=== PATIENT | female | born 1995 | race Caucasian/White ===

== ENCOUNTER 2017-12-16 15:49 | Outpatient (CLI) | payer OTHER, MEDICAID, SELFPAY | END 2017-12-16 17:25 | disposition home or self-care (01) | LOC: LABOR 17:27 → OB 12-17 09:23 | PROVIDERS: PCP Obstetrics & Gynecology | DX: O30.002 Twin pregnancy, unspecified number of placenta and unspecified number of amniotic sacs, second trimester (principal); Z3A.23 23 weeks gestation of pregnancy | CPT/HCPCS: 59050; G0378; G0379 ==

== ENCOUNTER 2018-02-06 12:25 | Emergency (ER) | payer OTHER, MEDICAID, SELFPAY ==
[2018-02-06 12:28] VITALS: BP 137/86; PULSE 120; RESP 18; TEMP 36.3; O2SAT 98
[2018-02-06 13:15] LABS: Influenza A and B by PCR Rapid Negative (Negative)
--- NOTE | 2018-02-06 13:20 | ED_ITS ---
HPI - URI/Sore Throat General Chief Complaint: Upper Respiratory Symptoms Stated Complaint: 'A COLD',32 WEEKS WITH TWINS Time Seen by Provider: 02/06/18 13:12 Source: patient Mode of arrival: ambulatory Limitations: no limitations History of Present Illness HPI Narrative: This is a 22-year-old female who comes to the emergency department with complaint of upper respiratory congestion, productive cough with green sputum, posttussive emesis while 32 weeks with twins. Patient is not aware of any fevers she has had for sure. She states that she has felt like it is difficult to breathe but more in her upper respiratory area. She is denying any current chest pain or pressure. She has had some nausea immediately with her after cough as well as independently. She has had diarrhea about 2 times daily. Her symptoms all started about 3 days ago. Patient has had a little bit of stress incontinence every time she coughs she has a little bit a urine but she has been having stress incontinence the further her progresses. Her OBGYN is in every. She has not had any complications so far with her . She is taking an aspirin daily to prevent placental abruption. She is on a and no other regular medications. She denies any other past medical history. Related Data Previous Rx's Medication Instructions Recorded omeprazole 20 mg PO DAILY #30 cap 12/16/17 amoxicillin 500 mg PO TID 5 Days #15 cap 02/06/18 Allergies Allergy/AdvReac Type Severity Reaction Status Date / Time No Known Drug Allergies Allergy Verified 02/06/18 12:28 Review of Systems Review of Systems All systems reviewed & are unremarkable except as noted in HPI and below Constitutional Denies fever(s) Cardiovascular Denies chest pain Respiratory Reports change in phlegm color, Reports chest congestion, Reports cough, Denies hemoptysis, Reports excessive phlegm production (green) and Denies wheezing Gastrointestinal Gastrointestinal: Denies abdominal pain, Denies change in bowel habits, Reports diarrhea (x2 daily), Reports nausea and Reports vomiting Genitourinary Reports as per HPI (), Reports urinary frequency, Reports urinary incontinence (stress incontinence) and Denies urinary urgency Allergic/Immunologic Denies wheezing PFSH Medical History Twin (Acute) Social History Smoking Status: Former smoker Exam Narrative Exam Narrative: GEN: well nourished, well appearing female, alert and oriented x 3, patient appears to be in mild distress. HEENT: Atraumatic, pupils are equal round reactive to light, extraocular movements are intact, nares clear rhinorrhea bilaterally, TMs are clear with no fluid, there is no conjunctival pallor. Throat is clear without any exudates, erythema, tonsillar enlargement or uvular deviation HEART: Slightly tachycardic but Regular rate and rhythm without murmur, clicks , rubs. LUNGS:Lungs clear to auscultation, no decreased breath sounds, no wheezes, rales , crackles, chest moves symmetrically, no accessory muscle use. Mild edema bilateral lower extremities. ABD:bowel sounds normal, soft, non-tender, no guarding, rebound, rigidity, no masses noted, no hepatosplenomegaly. Gravid. Size appropriate for dates with twins. :No CVA tenderness MSCL: Non-tender, no muscle atrophy, muscles strength 5/5 upper and lower extremities, full range of motion, normal gait NEURO:CN 2-12 intact, sensation normal Initial Vital Signs Initial Vital Signs: Vital Signs Temperature 97.4 F L 02/06/18 12:28 Pulse Rate 120 H 02/06/18 12:28 Respiratory Rate 18 02/06/18 12:28 Blood Pressure 137/86 02/06/18 12:28 Pulse Oximetry 98 02/06/18 12:28 Course Orders Ordered: ED Orders 02/06/18 12:35 FLU A and B [Influenza A and B by PCR Rapid] Stat 02/06/18 14:05 Complete Blood Count AUTO DIFF Stat Comprehensive Metabolic Panel Stat Discontinued Medications Sodium Chloride (Normal Saline 0.9%) 1,000 mls @ 1,000 mls/hr IV BOLUS ONE Stop: 02/06/18 14:18 Last Infusion: 02/06/18 15:24 Dose: 0 mls/hr Admin: 02/06/18 14:19 Dose: 1,000 mls/hr Ondansetron HCl (Zofran) 4 mg IV NOW ONE Stop: 02/06/18 13:20 Last Admin: 02/06/18 14:19 Dose: 4 mg Vital Signs - 8 hr 02/06/18 12:28 02/06/18 15:09 02/06/18 16:03 Temperature 97.4 F L 97.3 F L Pulse Rate 120 H 106 H 108 H Respiratory Rate 18 18 18 Blood Pressure 137/86 118/69 Blood Pressure [Right Arm] 106/66 Pulse Oximetry 98 99 99 MDM - URI/Sore Throat Differential Diagnosis Differential diagnosis: Likely upper respiratory infection, bronchitis, influenza and other (pneumonia vs. other) Lab Data Result diagrams: 02/06/18 14:05 02/06/18 14:05 Lab Results 02/06/18 02/06/18 02/06/18 Range/Units 12:35 14:05 14:05 WBC 19.2 H (4.5-11.0) X10^3/uL RBC 3.39 L (4.0-5.2) X10^6/uL Hgb 9.3 L (12.0-16.0) g/dL Hct 27.2 L (36-46) % MCV 80.3 (80-100) fL MCH 27.5 (26-34) PG MCHC 34.3 (30-36) % RDW 14.1 (11.6-14.8) % Plt Count 317 (150-400) X10^3/uL Neut % (Auto) 87.2 H (50-75) % Lymph % (Auto) 6.9 L (25-40) % [place] % (Auto) 5.1 (3-14) % Eos % (Auto) 0.3 L (2-4) % Baso % (Auto) 0.5 (0-2) % Neut # (Auto) 54893 H (6180-3330) /uL Sodium 138 (137-145) mmol/L Potassium 4.1 (3.4-5.1) mmol/L Chloride 106 (98-107) mmol/L Carbon Dioxide 20 L (22-32) mmol/L BUN 3 L (7-17) mg/dL Creatinine 0.40 L (0.52-1.04) mg/dL Estimated GFR > 60.0 (>60) mL/min BUN/Creatinine Ratio 7.5 (6-22) Glucose 86 (70-100) mg/dL Calcium 9.1 (8.4-10.2) mg/dL Total Bilirubin 0.2 (0.2-1.3) mg/dL AST 14 (14-36) IU/L ALT 13 (9-52) IU/L Alkaline Phosphatase 116 (38-126) U/L Total Protein 6.5 (6.3-8.2) g/dL Albumin 3.7 (3.5-5.0) g/dL Globulin 2.8 (1.7-4.1) g/dL Albumin/Globulin Ratio 1.3 (1.0-2.8) Influenza A & B (PCR) Negative (Negative) Urine Dip Bedside Urine Glucose Negative Bedside Urine Bilirubin - Negative Bedside Urine Ketone +/- 5 Urine Specific [place] 1.015 Bedside Urine Occult Blood - Negative Bedside Urine pH 7.0 Bedside Urine Protein - Negative Bedside Urine Urobilinogen - Negative Bedside Urine Nitrite - Negative Bedside Urine Leukocytes - Negative Esterase MDM Narrative Medical decision making narrative: Patient comes in tachycardic, patient has been having emesis has not been feeling well. Patient given a L of fluids and some Zofran this made her feel a little bit better rate improved but she still is great. She is 32 weeks with twins she states she has plenty of good movement. Patient has had upper respiratory infection with positive sick contact in the last couple weeks. She has had some green productive sputum so somewhat suspicions for pneumonia. We discussed chest x-ray but deferred, her physical exam was clear with no crackles, wheezes rales or rhonchi. She has not had any hypoxia her blood pressure has been appropriate. Her white count is elevated some of this may be related to but may also be struck directly from infection. She is anemic which may also be contributing to her shortness of breath. Renal function is normal the rest of her labs are normal. She has not having any swelling her lower extremities or changes on her lung exam that make me suspicious for cardiomyopathy. Patient does have congestion consistent with upper respiratory infection. Discussed signs and symptoms to watch for, she has follow-up on February 13 with her OBGYN but encouraged to follow up sooner or return for recheck. Discharge Plan Departure Patient Disposition: Home Clinical Impression: Pneumonia Discharge Date/Time: 02/06/18 16:03 Interventions: ED Discharge Assessment Last Done: 02/06/18 16:03 Instructions: DI for Pneumonia -- Adult Activity Restrictions/Additional Instructions: Follow up with your ton container filler at your scheduled appointment on February 13, call to see if they would like to see you sooner. Take antibiotics until completely gone for presumptive pneumonia. You may take tylenol up to 1000mg every 8 hours as needed for pain. Make sure your drinking plenty of fluids. Return to the emergency department for fevers greater than 100.4, worsening shortness of breath, increasing or new chest pain, passing out abdominal pain, suddenly for worsening swelling of lower extremities or other new or concerning symptoms. Prescriptions: New amoxicillin 500 mg capsule 500 mg PO TID 5 Days Qty: 15 RF: 0 No Action omeprazole 20 mg capsule,delayed release(DR/EC) 20 mg PO DAILY Qty: 30 RF: 3 Referrals: Lima Johnson DO [Primary Care Provider] -
[2018-02-06 14:17] LABS: Add Manual Diff / Slide Review NO; Basophils Percent Auto 0.5 % (0-2); Eosinophils Percent Auto 0.3 % (2-4); Hematocrit 27.2 % (36-46); Hemoglobin 9.3 g/dL (12.0-16.0); Lymphocytes Percent Auto 6.9 % (25-40); Mean Corpuscular HGB Conc 34.3 % (30-36); Mean Corpuscular Hemoglobin 27.5 PG (26-34); Mean Corpuscular Volume 80.3 fL (80-100); Monocytes Percent Auto 5.1 % (3-14); Neutrophils Absolute Auto 16700 /uL (1500-7000); Neutrophils Percent Auto 87.2 % (50-75); Platelet Count 317 X10^3/uL (150-400); Red Blood Cell Count 3.39 X10^6/uL (4.0-5.2); Red Cell Distribution Width 14.1 % (11.6-14.8); White Blood Cell Count 19.2 X10^3/uL (4.5-11.0)
[2018-02-06] MEDS: ONDANSETRON 4 MG/2 ML INJ IV (14:19)
[2018-02-06] MEDS: SODIUM CHLORIDE 0.9% 1,000 ML 1000 ML IV (14:19)
[2018-02-06 14:29] LABS: Alanine Aminotransferase 13 IU/L (9-52); Albumin 3.7 g/dL (3.5-5.0); Albumin Globulin Ratio 1.3 (1.0-2.8); Alkaline Phosphatase 116 U/L (38-126); Aspartate Aminotransferase 14 IU/L (14-36); BUN Creatinine Ratio 7.5 (6-22); Bilirubin Total 0.2 mg/dL (0.2-1.3); Blood Urea Nitrogen 3 mg/dL (7-17); Calcium 9.1 mg/dL (8.4-10.2); Carbon Dioxide 20 mmol/L (22-32); Chloride 106 mmol/L (98-107); Estimated Glomerular Filt Rate > 60.0 mL/min (>60); Globulin 2.8 g/dL (1.7-4.1); Glucose 86 mg/dL (70-100); HEMOLYSIS < 15 (0-50); Potassium 4.1 mmol/L (3.4-5.1); Sodium 138 mmol/L (137-145); Total Protein 6.5 g/dL (6.3-8.2)
[2018-02-06 15:09] VITALS: BP 106/66; PULSE 106; RESP 18; TEMP 36.3; O2SAT 99
[2018-02-06 16:03] VITALS: BP 118/69; PULSE 108; RESP 18; O2SAT 99
== END 2018-02-06 16:03 | disposition home or self-care (01) ==
PROVIDERS: Emergency Provider Emergency Medicine; PCP Obstetrics & Gynecology
DX: J18.9 Pneumonia, unspecified organism (principal)
CPT/HCPCS: 36591; 80053; 81003; 85025; 87400; 96361; 96374; 99283; 99284; J2405

== ENCOUNTER 2018-02-14 21:07 | Inpatient (IN) | payer OTHER, MEDICAID, SELFPAY ==
[2018-02-14] MEDS: NIFEdipine 10 MG CAPSULE PO ×4 (21:59→23:02)
[2018-02-14 22:19] LABS: Bacteria Urine None Seen; RBC Urine None Seen (0-5/HPF); WBC Urine None Seen (0-5/HPF)
[2018-02-14 22:21] LABS: Appearance Urine UA CLEAR; Bilirubin Urine UA NEGATIVE (NEGATIVE); Color Urine UA YELLOW; Glucose Urine UA NEGATIVE (Negative); Ketones Urine UA NEGATIVE (NEGATIVE); Leukocyte Esterase Urine UA NEGATIVE (NEGATIVE); Nitrite Urine UA NEGATIVE (Negative); Occult Blood Urine UA NEGATIVE (Negative); Protein Urine UA NEGATIVE (Negative); Specific Gravity Urine UA <=1.005 (1.000-1.035); Urobilinogen Urine UA 0.2 E.U./dL (0.2)
[2018-02-14 22:34] LABS: Culture Indicated Urine Cult Not Indicated; Squamous Epithelial Cell Urine 0-1 /HPF
[2018-02-14] MEDS: LACTATED RINGERS 1,000 ML 100 ML IV (23:35)
[2018-02-14] MEDS: MAGNESIUM SULFATE 4 GM/100 ML PIGGYBACK IV (23:50)
--- NOTE | 2018-02-14 23:56 | P.HPOB_ITS ---
OB HPI Date/Time Date of admission: 02/14/18 Date Patient Seen: 02/14/18 Time Patient Seen: 23:50 History of Present Condition Chief complaint: : 1 Para: 0 Estimated Date of Delivery: 03/06/18 Estimated Gestational Age (weeks): 32 Narrative: Katiana Chery is a 22 year old female with premature labor with twin gestation History of Present care: initiated at week # (16) Dating criteria: LMP confirmed by 2nd trimester US Ultrasounds: abnormal US findings (Short humerus short femur and echogenic intracardiac foci of fetus 1) Obstetrical complications: none Medical complications: respiratory (02/06/2019 given amoxicillin 500 mg t.i.d. for 5 days for possible pneumonia) Narrative: Preadmission Labs Blood type: A (+) positive Evaluation Evaluation Baseline heart rate: 130 (both) Variability: Moderate (11-25) (both) monitor accelerations: Present (both) monitor decelerations: Absent (both) Contraction Frequency (minutes): 5 Uterine Contraction Intensity: Moderate Category of Tracing: I Cervical dilation (cm): 1 Cervical effacement (%): 80 Laboratory results: Laboratory Tests 02/14/18 22:05 Urine Color Yellow Urine Appearance Clear Urine pH 7.0 Ur Specific [place] <=1.005 Urine Protein Negative Urine Glucose (UA) Negative Urine Ketones Negative Urine Occult Blood Negative Urine Nitrate Negative Urine Bilirubin Negative Urine Urobilinogen 0.2 Ur Leukocyte Esterase Negative Urine RBC None seen Urine WBC None seen Ur Squamous Epith Cells 0-1 /hpf Urine Bacteria None seen Ur Culture Indicated? Cult not indicated Micro UA Comment Not Reportable PFSH Medical History Twin (Acute) Social History Smoking Status: Former smoker Meds Home Medications Medication Instructions Recorded Confirmed Type [id number] fumarate-FA 1 tab PO DAILY 02/14/18 02/14/18 History [] aspirin [Aspir-81] 81 mg PO DAILY 02/14/18 02/14/18 History Allergies Allergy/AdvReac Type Severity Reaction Status Date / Time No Known Drug Allergies Allergy Verified 02/14/18 22:14 Review of Systems Review of Systems Patient has a mild cough but no further shortness of breath. No headaches or scotomata. No vaginal bleeding or leakage of fluid. Good movement. All systems reviewed & are unremarkable except as noted in HPI and below Exam Vital Signs (past 8 hours): Blood pressure 135/61, pulse 98, temperature 98.2 Narrative Exam Narrative: HEENT exam within normal limits. Lungs are clear to auscultation and percussion although occasional coarse rhonchi that clear with cough. Heart is regular rate and rhythm no S3-S4 or murmurs. Abdomen is soft with no tenderness. Patient is having moderate palpation contractions. Cervical exam was fingertip 80%. Extremities without edema and nontender. Ultrasound twin A vertex, twin B transverse head in the right upper quadrant. Normal fluid. Objective Labs Labs: Laboratory Results - last 24 hr 02/14/18 22:05 Urine Color Yellow Urine Appearance Clear Urine pH 7.0 Ur Specific [place] <=1.005 Urine Protein Negative Urine Glucose (UA) Negative Urine Ketones Negative Urine Occult Blood Negative Urine Nitrate Negative Urine Bilirubin Negative Urine Urobilinogen 0.2 Ur Leukocyte Esterase Negative Urine RBC None seen Urine WBC None seen Ur Squamous Epith Cells 0-1 /hpf Urine Bacteria None seen Ur Culture Indicated? Cult not indicated Micro UA Comment Not Reportable Assessment and Plan (1) Twin gestation in third trimester: Current visit: Yes Status: Acute (2) Premature labor: Current visit: Yes Status: Acute Plan: Plan: 32 and 6/7 weeks by dates twin gestation with premature labor unresponsive to IV fluids and nifedipine. Urine is negative. Will transfer her to [facility] accepting. IV magnesium sulfate 4 g bolus then 2 grams/ hour and 12 mg of betamethasone IM given to the patient.
[2018-02-15] MEDS: MAGNESIUM SULFATE 20 GM/500 ML IV.SOLN IV (00:15)
[2018-02-15] MEDS: BETAMETHASONE 30 MG/5 ML MDV 12 MG IM (00:23)
== END 2018-02-15 02:25 | disposition short-term general hospital (02) | DRG 563 ==
PROVIDERS: Admitting Provider Specialist; PCP Obstetrics & Gynecology; Visit Provider Specialist
DX: O60.03 Preterm labor without delivery, third trimester (principal); O30.003 Twin pregnancy, unspecified number of placenta and unspecified number of amniotic sacs, third trimester; Z3A.32 32 weeks gestation of pregnancy
CPT/HCPCS: 59025; 59050; 76815; 81001; 96372; 99235; G0378; G0379; J0702; J3475

== ENCOUNTER 2018-05-07 14:31 | Emergency (ER) | payer OTHER, MEDICAID, SELFPAY ==
[2018-05-07 14:47] VITALS: BP 143/85; PULSE 92; RESP 20; TEMP 36.6; O2SAT 98; BMI 31.6
--- NOTE | 2018-05-07 14:48 | ED.ABDPAIN ---
HPI - Abdominal Pain <JANA Mahmood - Last Filed: 05/07/18 22:24> General Chief Complaint: Abdominal Pain Stated Complaint: umbilical hernia Time Seen by Provider: 05/07/18 14:32 Source: patient Mode of arrival: ambulatory Limitations: no limitations History of Present Illness HPI narrative: 22-year-old healthy female that is an everyday smoker here for complaint of having umbilical hernia. She reports she has had an umbilical hernia for the past 6 weeks after given to her twins. She was seen by her doctor today for this and was referred to surgery for further evaluation and treatment. She presents today due to the pain of the umbilical hernia. She states that she is now changing from breast-feeding to formula as she states that it is getting difficult for her to breast feed due to the discomfort. She denies any recent trauma to the abdomen. She states that the hernia reduces and returns periodically. She reports that her pain is exacerbated by carrying the twins. She denies any other concerns or complaints at this time. She denies any urinary symptoms. Last bowel movement was last night and was unremarkable. MD complaint: abdominal pain Related Data Home Medications Medication Instructions Recorded Confirmed [id number] fumarate-FA 1 tab PO DAILY 02/14/18 02/14/18 [] aspirin [Aspir-81] 81 mg PO DAILY 02/14/18 02/14/18 Previous Rx's Medication Instructions Recorded hydrocodone-acetaminophen 1 tab PO Q4-6H PRN #15 tab 05/07/18 Allergies Allergy/AdvReac Type Severity Reaction Status Date / Time No Known Drug Allergies Allergy Verified 02/14/18 22:14 Review of Systems <JANA Mahmood - Last Filed: 05/07/18 22:24> Constitutional Denies chills, Denies fever(s), Denies lethargy and Denies weakness Eyes Denies change in vision, Denies eye discharge, Denies irritation and Denies loss of vision ENT Ears, Nose, Mouth, and Throat: Denies change in voice, Denies neck pain and Denies sore throat Cardiovascular Denies chest pain, Denies irregular heart rhythm, Denies lightheadedness, Denies palpitations, Denies dyspnea, Denies dyspnea on exertion and Denies orthopnea Respiratory Denies cough, Denies dyspnea, Denies dyspnea on exertion and Denies wheezing Gastrointestinal Gastrointestinal: Denies abdominal pain, Denies change in bowel habits, Denies diarrhea, Denies nausea and Denies vomiting Comments: Umbilical hernia Genitourinary Denies hematuria, Denies flank pain, Denies urinary incontinence and Denies urinary urgency Musculoskeletal Denies neck pain Integumentary/Breasts Denies pruritus, Denies erythema, Denies rash and Denies wounds Neurologic Denies loss of vision and Denies weakness Endocrine Denies palpitations Allergic/Immunologic Denies wheezing PFSH <JANA Mahmood - Last Filed: 05/07/18 22:24> Medical History Twin (Acute) Social History Smoking Status: Former smoker Social History Smoking Status: Former smoker Exam <JANA Mahmood - Last Filed: 05/07/18 22:24> Initial Vital Signs Initial Vital Signs: Vital Signs Temperature 97.8 F 05/07/18 14:47 Pulse Rate 92 H 05/07/18 14:47 Respiratory Rate 20 05/07/18 14:47 Blood Pressure 143/85 H 05/07/18 14:47 Pulse Oximetry 98 05/07/18 14:47 Const General: cooperative and well developed Nutritional Appearance: well nourished Orientation: alert, awake, oriented x3 and not confused HENMT Mouth: oral mucosae normal and moist mucous membranes Eyes Conjunctivae: conjunctivae normal Sclera: sclerae normal Pupils: PERRL EOM: EOM intact bilaterally Resp Effort & Inspection: normal respiratory effort, able to speak in complete sentences, no respiratory distress and no use of accessory muscles Auscultation: clear to auscultation bilaterally, no rales, no rhonchi and no wheezes Cardio Rate: regular rate Rhythm: regular rhythm Heart Sounds: no click, no gallops, no murmurs and no rubs Pulses: normal peripheral pulses GI Inspection: non-distended Palpation: soft, no hepatosplenomegaly, No guarding, No pulsatile mass and tender Auscultation: normal bowel sounds Other: Tenderness on palpation to the umbilical area. 2 cm umbilical hernia is appreciated. It is reducible. Do not appreciate strangulation at this time. Skin General: no rashes or lesions noted, No jaundice and No petechiae Neuro General: alert, oriented x3, gait normal and no focal motor deficits Speech: speech normal <Elvia Bo DO - Last Filed: 05/08/18 09:52> Initial Vital Signs Initial Vital Signs: Vital Signs Temperature 97.8 F 05/07/18 14:47 Pulse Rate 92 H 05/07/18 14:47 Respiratory Rate 20 05/07/18 14:47 Blood Pressure 143/85 H 05/07/18 14:47 Pulse Oximetry 98 05/07/18 14:47 Course <JANA Mahmood - Last Filed: 05/07/18 22:24> Orders Ordered: Discontinued Medications Hydrocodone Bitart/Acetaminophen ([place] 5/325) 1 tab PO NOW ONE Stop: 05/07/18 14:57 Last Admin: 05/07/18 15:10 Dose: 1 tab Vital Signs - 8 hr 05/07/18 14:47 Temperature 97.8 F Pulse Rate 92 H Respiratory Rate 20 Blood Pressure 143/85 H Pulse Oximetry 98 <Elvia Bo DO - Last Filed: 05/08/18 09:52> Orders Ordered: Discontinued Medications Hydrocodone Bitart/Acetaminophen ([place] 5/325) 1 tab PO NOW ONE Stop: 05/07/18 14:57 Last Admin: 05/07/18 15:10 Dose: 1 tab Vital Signs - 8 hr 05/07/18 14:47 Temperature 97.8 F Pulse Rate 92 H Respiratory Rate 20 Blood Pressure 143/85 H Pulse Oximetry 98 MDM - Abdominal Pain <JANA Mahmood - Last Filed: 05/07/18 22:24> MDM Narrative Medical decision making narrative: Signs and symptoms presents as a reducible umbilical hernia. She is already for to surgery for outpatient treatment of this. The hernia is reduced due supple. No strangulation is appreciated. Will have her follow up with surgery as directed. [id number] Tylenol or Motrin as needed for any discomfort. She is prescribed [place] for breakthrough pain. Follow up with primary care provider. Return emergency room for any worsening symptoms. Discharge Plan Departure Patient Disposition: Home Clinical Impression: Hernia, umbilical Qualifiers: Obstruction and gangrene presence: without obstruction or gangrene Qualified Code(s): K42.9 - Umbilical hernia without obstruction or gangrene Discharge Date/Time: 05/07/18 15:16 Interventions: ED Discharge Assessment Last Done: 05/07/18 15:15 Instructions: DI for Ventral Hernia Activity Restrictions/Additional Instructions: Signs and symptoms presents as an umbilical hernia. Follow up with surgery as directed for further treatment and evaluation. Hernia is reducible and therefore is not medical emergency at this timeframe. Use [id number] Tylenol or Motrin as needed for any discomfort. [place] is prescribed for breakthrough pain use as directed. No driving while on the [place]. For any worsening symptoms return emergency room. Follow up with primary care provider. Prescriptions: New hydrocodone-acetaminophen 5-325 mg tablet 1 tab PO Q4-6H PRN (Reason: pain) Qty: 15 RF: 0 No Action aspirin [Aspir-81] 81 mg Tablet,Delayed Release (Dr/Ec) 81 mg PO DAILY RF: 0 [id number] fumarate-FA [] 28-800 mg-mcg Tablet 1 tab PO DAILY RF: 0 Referrals: Lima Johnson DO [Primary Care Provider] - <Elvia Bo DO - Last Filed: 05/08/18 09:52> Cosign ED Attending Yogiature Attestation: I was immediately available in the department for consultation. Documentation has been reviewed. I agree with assessment and plan.
--- NOTE | 2018-05-07 15:02 | ED_ITS ---
HPI - Abdominal Pain <JANA Mahmood - Last Filed: 05/07/18 22:24> General Chief Complaint: Abdominal Pain Stated Complaint: umbilical hernia Time Seen by Provider: 05/07/18 14:32 Source: patient Mode of arrival: ambulatory Limitations: no limitations History of Present Illness HPI narrative: 22-year-old healthy female that is an everyday smoker here for complaint of having umbilical hernia. She reports she has had an umbilical hernia for the past 6 weeks after given to her twins. She was seen by her doctor today for this and was referred to surgery for further evaluation and treatment. She presents today due to the pain of the umbilical hernia. She states that she is now changing from breast-feeding to formula as she states that it is getting difficult for her to breast feed due to the discomfort. She denies any recent trauma to the abdomen. She states that the hernia reduces and returns periodically. She reports that her pain is exacerbated by carrying the twins. She denies any other concerns or complaints at this time. She denies any urinary symptoms. Last bowel movement was last night and was unremarkable. MD complaint: abdominal pain Related Data Home Medications Medication Instructions Recorded Confirmed [id number] 1 tab PO DAILY 02/14/18 02/14/18 [] aspirin [Aspir-81] 81 mg PO DAILY 02/14/18 02/14/18 Previous Rx's Medication Instructions Recorded hydrocodone-acetaminophen 1 tab PO Q4-6H PRN #15 tab 05/07/18 Allergies Allergy/AdvReac Type Severity Reaction Status Date / Time No Known Drug Allergies Allergy Verified 02/14/18 22:14 Review of Systems <JANA Mahmood - Last Filed: 05/07/18 22:24> Constitutional Denies chills, Denies fever(s), Denies lethargy and Denies weakness Eyes Denies change in vision, Denies eye discharge, Denies irritation and Denies loss of vision ENT Ears, Nose, Mouth, and Throat: Denies change in voice, Denies neck pain and Denies sore throat Cardiovascular Denies chest pain, Denies irregular heart rhythm, Denies lightheadedness, Denies palpitations, Denies dyspnea, Denies dyspnea on exertion and Denies orthopnea Respiratory Denies cough, Denies dyspnea, Denies dyspnea on exertion and Denies wheezing Gastrointestinal Gastrointestinal: Denies abdominal pain, Denies change in bowel habits, Denies diarrhea, Denies nausea and Denies vomiting Comments: Umbilical hernia Genitourinary Denies hematuria, Denies flank pain, Denies urinary incontinence and Denies urinary urgency Musculoskeletal Denies neck pain Integumentary/Breasts Denies pruritus, Denies erythema, Denies rash and Denies wounds Neurologic Denies loss of vision and Denies weakness Endocrine Denies palpitations Allergic/Immunologic Denies wheezing PFSH <JANA Mahmood - Last Filed: 05/07/18 22:24> Medical History Twin (Acute) Social History Smoking Status: Former smoker Social History Smoking Status: Former smoker Exam <JANA Mahmood - Last Filed: 05/07/18 22:24> Initial Vital Signs Initial Vital Signs: Vital Signs Temperature 97.8 F 05/07/18 14:47 Pulse Rate 92 H 05/07/18 14:47 Respiratory Rate 20 05/07/18 14:47 Blood Pressure 143/85 H 05/07/18 14:47 Pulse Oximetry 98 05/07/18 14:47 Const General: cooperative and well developed Nutritional Appearance: well nourished Orientation: alert, awake, oriented x3 and not confused HENMT Mouth: oral mucosae normal and moist mucous membranes Eyes Conjunctivae: conjunctivae normal Sclera: sclerae normal Pupils: PERRL EOM: EOM intact bilaterally Resp Effort & Inspection: normal respiratory effort, able to speak in complete sentences, no respiratory distress and no use of accessory muscles Auscultation: clear to auscultation bilaterally, no rales, no rhonchi and no wheezes Cardio Rate: regular rate Rhythm: regular rhythm Heart Sounds: no click, no gallops, no murmurs and no rubs Pulses: normal peripheral pulses GI Inspection: non-distended Palpation: soft, no hepatosplenomegaly, No guarding, No pulsatile mass and tender Auscultation: normal bowel sounds Other: Tenderness on palpation to the umbilical area. 2 cm umbilical hernia is appreciated. It is reducible. Do not appreciate strangulation at this time. Skin General: no rashes or lesions noted, No jaundice and No petechiae Neuro General: alert, oriented x3, gait normal and no focal motor deficits Speech: speech normal <Elvia Bo DO - Last Filed: 05/08/18 09:52> Initial Vital Signs Initial Vital Signs: Vital Signs Temperature 97.8 F 05/07/18 14:47 Pulse Rate 92 H 05/07/18 14:47 Respiratory Rate 20 05/07/18 14:47 Blood Pressure 143/85 H 05/07/18 14:47 Pulse Oximetry 98 05/07/18 14:47 Course <JANA Mahmood - Last Filed: 05/07/18 22:24> Orders Ordered: Discontinued Medications Hydrocodone Bitart/Acetaminophen ([place] 5/325) 1 tab PO NOW ONE Stop: 05/07/18 14:57 Last Admin: 05/07/18 15:10 Dose: 1 tab Vital Signs - 8 hr 05/07/18 14:47 Temperature 97.8 F Pulse Rate 92 H Respiratory Rate 20 Blood Pressure 143/85 H Pulse Oximetry 98 <Elvia Bo DO - Last Filed: 05/08/18 09:52> Orders Ordered: Discontinued Medications Hydrocodone Bitart/Acetaminophen ([place] 5/325) 1 tab PO NOW ONE Stop: 05/07/18 14:57 Last Admin: 05/07/18 15:10 Dose: 1 tab Vital Signs - 8 hr 05/07/18 14:47 Temperature 97.8 F Pulse Rate 92 H Respiratory Rate 20 Blood Pressure 143/85 H Pulse Oximetry 98 MDM - Abdominal Pain <JANA Mahmood - Last Filed: 05/07/18 22:24> MDM Narrative Medical decision making narrative: Signs and symptoms presents as a reducible umbilical hernia. She is already for to surgery for outpatient treatment of this. The hernia is reduced due supple. No strangulation is appreciated. Will have her follow up with surgery as directed. [id number] Tylenol or Motrin as needed for any discomfort. She is prescribed [place] for breakthrough pain. Follow up with primary care provider. Return emergency room for any worsening symptoms. Discharge Plan Departure Patient Disposition: Home Clinical Impression: Hernia, umbilical Qualifiers: Obstruction and gangrene presence: without obstruction or gangrene Qualified Code(s): K42.9 - Umbilical hernia without obstruction or gangrene Discharge Date/Time: 05/07/18 15:16 Interventions: ED Discharge Assessment Last Done: 05/07/18 15:15 Instructions: DI for Ventral Hernia Activity Restrictions/Additional Instructions: Signs and symptoms presents as an umbilical hernia. Follow up with surgery as directed for further treatment and evaluation. Hernia is reducible and therefore is not medical emergency at this timeframe. Use [id number] Tylenol or Motrin as needed for any discomfort. [place] is prescribed for breakthrough pain use as directed. No driving while on the [place]. For any worsening symptoms return emergency room. Follow up with primary care provider. Prescriptions: New hydrocodone-acetaminophen 5-325 mg tablet 1 tab PO Q4-6H PRN (Reason: pain) Qty: 15 RF: 0 No Action aspirin [Aspir-81] 81 mg Tablet,Delayed Release (Dr/Ec) 81 mg PO DAILY RF: 0 [id number] fumarate-FA [] 28-800 mg-mcg Tablet 1 tab PO DAILY RF: 0 Referrals: Lima Johnson DO [Primary Care Provider] - <Elvia Bo DO - Last Filed: 05/08/18 09:52> Cosign ED Attending Yogiature Attestation: I was immediately available in the department for consultation. Documentation has been reviewed. I agree with assessment and plan.
[2018-05-07] MEDS: HYDROCODONE/ACET 5/325 TABLET 1 TAB PO (15:10)
== END 2018-05-07 15:16 | disposition home or self-care (01) ==
PROVIDERS: Emergency Provider Nurse Practitioner Family; PCP Obstetrics & Gynecology
DX: K42.9 Umbilical hernia without obstruction or gangrene (principal)
CPT/HCPCS: 99282; 99283

== ENCOUNTER 2018-09-08 13:42 | Emergency (ER) | payer OTHER, MEDICAID, SELFPAY ==
[2018-09-08 14:15] VITALS: BP 114/59; PULSE 77; RESP 16; TEMP 36.6; O2SAT 97
--- NOTE | 2018-09-08 14:23 | ED_ITS ---
HPI - Headache General Chief Complaint: Headache Stated Complaint: Left sided migraine for 3 days Time Seen by Provider: 09/08/18 14:10 Source: patient and family Mode of arrival: ambulatory Limitations: no limitations History of Present Illness HPI Narrative: 22-year-old female nonsmoker history of migraines presents with a left-sided headache for the past 3 days. She states it is a 9/10 and aching in nature. She states it is worse with bright lights, loud noises and leaning forward. She states improves with a dark quiet room. She denies any fever or chills. She has had nausea but no vomiting. She denies any injury. She is breast-feeding to 6-month-old twins. She denies any neurologic symptoms such as numbness, tingling or weakness MD Complaint: headache and migraine Location: left and frontal Severity: moderate Quality: aching and throbbing Relieving factors: dark room Exacerbating factors: light and noise Associated symptoms: nausea Treatments prior to arrival: none Related Data Home Medications Medication Instructions Recorded Confirmed acetaminophen [Tylenol] 650 mg PO Q4H PRN 09/08/18 09/08/18 ibuprofen 600 mg PO QID 09/08/18 09/08/18 sertraline 100 mg PO DAILY 09/08/18 09/08/18 Allergies Allergy/AdvReac Type Severity Reaction Status Date / Time No Known Drug Allergies Allergy Verified 09/08/18 14:18 Review of Systems Constitutional Denies chills, Denies fever(s), Reports headache(s), Denies lethargy and Denies weakness Eyes Denies change in vision, Denies eye discharge, Denies irritation and Denies loss of vision ENT Ears, Nose, Mouth, and Throat: Denies change in voice, Reports headache(s), Denies neck pain and Denies sore throat Cardiovascular Denies chest pain, Denies irregular heart rhythm, Denies lightheadedness, Denies palpitations, Denies dyspnea, Denies dyspnea on exertion and Denies orthopnea Respiratory Denies cough, Denies dyspnea, Denies dyspnea on exertion and Denies wheezing Gastrointestinal Gastrointestinal: Denies abdominal pain, Denies change in bowel habits, Denies diarrhea, Reports nausea and Denies vomiting Genitourinary Denies hematuria, Denies flank pain, Denies urinary incontinence and Denies urinary urgency Musculoskeletal Denies neck pain Integumentary/Breasts Denies pruritus, Denies erythema, Denies rash and Denies wounds Neurologic Denies confusion, Reports headache(s), Denies loss of vision and Denies weakness Psychiatric Denies anxiety, Denies confusion, Denies depression, Denies homicidal ideation and Denies suicidal ideation Endocrine Denies palpitations Hematologic/Lymphatic Denies easy bruising Allergic/Immunologic Denies wheezing [facility] Medical History Twin (Acute) Social History Smoking Status: Former smoker Social History Smoking Status: Former smoker Exam Narrative Exam Narrative: GENERAL: 22-year-old female appears stated age, obviously uncomfortable, wearing sunglasses HEAD: Atraumatic. Normocephalic. No temporal or scalp tenderness. EYES: Pupils equal round and reactive. Extraocular motions intact. No scleral icterus. No injection or drainage. ENT: Nose without bleeding, purulent drainage or septal hematoma. Throat without erythema, tonsillar hypertrophy or exudate. Uvula midline. Airway patent. NECK: Trachea midline. No JVD or lymphadenopathy. Supple, nontender, no meningeal signs. CARDIOVASCULAR: Regular rate and rhythm without murmurs, gallops, or rubs. RESPIRATORY: Clear to auscultation. Breath sounds equal bilaterally. No wheezes, rales, or rhonchi. GASTROINTESTINAL: Abdomen soft, non-tender, nondistended. No hepato- splenomegaly, or palpable masses. No guarding. EXTREMITIES: No clubbing, cyanosis, or edema. No joint tenderness, effusion, or edema noted. BACK: Nontender without deformity or crepitance. No flank tenderness. NEURO: AOx3. SKIN: No rash or erythema. NIH Stroke Scale 1a. LOC: Patient is alert and keenly responsive (0) 1b. LOC Questions: Patient answers both LOC questions accurately (0) 1c. LOC Commands: Patient performs both tasks correctly (0) 2. Best Gaze: Normal (0) 3. Visual: No visual loss (0) 4. Facial palsy: Normal symmetrical movements (0) 5. Motor arm: No drift (0) 6. Motor leg: No drift (0) 7. Limb ataxia: Absent (0) 8. Sensory: Normal (0) 9. Best language: No aphasia; normal (0) 10. Dysarthria: Normal (0) 11. Extinction and inattention: No abnormality (0) NIHSS: 0 Initial Vital Signs Initial Vital Signs: Vital Signs Temperature 97.9 F 09/08/18 14:15 Pulse Rate 77 09/08/18 14:15 Respiratory Rate 16 09/08/18 14:15 Blood Pressure 114/59 L 09/08/18 14:15 Pulse Oximetry 97 09/08/18 14:15 Course Orders Ordered: Discontinued Medications Sodium Chloride (Normal Saline 0.9%) 1,000 mls @ 1,000 mls/hr IV BOLUS ONE Stop: 09/08/18 15:19 Last Infusion: 09/08/18 15:51 Dose: 0 mls/hr Admin: 09/08/18 14:39 Dose: 1,000 mls/hr Ketorolac Tromethamine (Toradol) 15 mg IV NOW ONE Stop: 09/08/18 14:21 Last Admin: 09/08/18 14:40 Dose: 15 mg Metoclopramide HCl (Reglan) 10 mg IV NOW ONE Stop: 09/08/18 14:21 Last Admin: 09/08/18 14:39 Dose: 10 mg Vital Signs - 8 hr 09/08/18 14:15 Temperature 97.9 F Pulse Rate 77 Respiratory Rate 16 Blood Pressure 114/59 L Pulse Oximetry 97 Discharge Plan Departure Patient Disposition: Home Clinical Impression: Headache Qualifiers: Headache type: other headache syndrome Qualified Code(s): G44.89 - Other headache syndrome Discharge Date/Time: 09/08/18 15:38 Interventions: ED Discharge Assessment Last Done: 09/08/18 15:38 Instructions: DI for Headache Activity Restrictions/Additional Instructions: *You have been diagnosed with [acute headache, likely migraine variant] *What to do: * continue to take medications as previously directed *Follow up with your primary care provider in 2-3 days, call for an appointment. Let them know you were seen in the Emergency Department and that we ask that you be seen in follow up *Return to ER if you should have any new, worsening or concerning symptoms Prescriptions: No Action sertraline 100 mg Tablet 100 mg PO DAILY RF: 0 ibuprofen 600 mg Tablet 600 mg PO QID RF: 0 acetaminophen [Tylenol] 325 mg Capsule 650 mg PO Q4H PRN (Reason: Pain (Scale Score 1-3)) RF: 0 Referrals: Lima Johnson DO [Primary Care Provider] -
[2018-09-08] MEDS: SODIUM CHLORIDE 0.9% 1,000 ML 1000 ML IV (14:39)
[2018-09-08] MEDS: METOCLOPRAMIDE 10 MG/2 ML INJ IV (14:39)
[2018-09-08] MEDS: KETOROLAC 60 MG/2 ML VIAL 15 MG IV (14:40)
--- NOTE | 2018-09-08 14:48 | PC.NURSE ---
pt reports migraines before but never this bad. pt alert oriented and has two babies that she is . Started iv and fluids and gave medications. In room with and 2 babies.
[2018-09-08 15:38] VITALS: BP 104/62; PULSE 56; RESP 18; O2SAT 98
== END 2018-09-08 15:38 | disposition home or self-care (01) ==
PROVIDERS: Emergency Provider Emergency Medicine; PCP Obstetrics & Gynecology
DX: G44.89 Other headache syndrome (principal)
CPT/HCPCS: 96361; 96374; 96375; 99283; 99284; J1885; J2765

== ENCOUNTER 2018-10-28 12:31 | Observation (INO) | payer OTHER, MEDICAID, SELFPAY ==
[2018-10-28] VITALS (13 sets, daily range): BP systolic 103–149; BP diastolic 59–99; PULSE 62–89; RESP 9–18; TEMP 36.5–37.3; O2SAT 93–99; BMI 31.1
[2018-10-28 15:32] LABS: Add Manual Diff / Slide Review NO; Basophils Absolute Auto 100 /uL (0-100); Eosinophils Absolute Auto 200 /uL (0-450); Eosinophils Percent Auto 1.7 % (2-4); Hematocrit 40.1 % (36-46); Hemoglobin 13.7 g/dL (12.0-16.0); Lymphocytes Absolute Auto 2600 /uL (1100-4500); Lymphocytes Percent Auto 23.3 % (25-40); Mean Corpuscular HGB Conc 34.1 % (30-36); Mean Corpuscular Hemoglobin 28.1 PG (26-34); Mean Corpuscular Volume 82.5 fL (80-100); Monocytes Absolute Auto 500 /uL (0-900); Monocytes Percent Auto 4.8 % (3-14); Neutrophils Absolute Auto 7700 /uL (1500-7000); Neutrophils Percent Auto 69.2 % (50-75); Platelet Count 288 X10^3/uL (150-400); Red Blood Cell Count 4.86 X10^6/uL (4.0-5.2); Red Cell Distribution Width 14.2 % (11.6-14.8)
[2018-10-28 15:38] LABS: INR 1.1 (0.9-1.3); Prothrombin Time 12.1 SECONDS (10.1-12.7)
--- NOTE | 2018-10-28 15:40 | ED_ITS ---
HPI - Abdominal Pain General Chief Complaint: Abdominal Pain Stated Complaint: Abd pain Time Seen by Provider: 10/28/18 15:34 Source: patient and family () Mode of arrival: ambulatory Limitations: no limitations History of Present Illness HPI narrative: 22-year-old female comes to the emergency department with complaint of abdominal pain patient states she has a history of umbilical hernia a little bit similar but is more below the umbilicus today. Patient states it is worse. She has not had any fevers but she has had some nausea and vomiting. She states she has been having bowel movements. No black or bloody stools. No issues with urination. She denies any fevers or chills. Patient states she was told she had umbilical hernia before, she was recommended get surgery but had not had time. She has 2 a 7-month-old twins. She had these via vaginal delivery. Patient denies any other major medical issues. Related Data Home Medications Medication Instructions Recorded Confirmed acetaminophen [Tylenol] 650 mg PO Q4H PRN 09/08/18 10/28/18 sertraline 100 mg PO QPM 09/08/18 10/28/18 Allergies Allergy/AdvReac Type Severity Reaction Status Date / Time No Known Drug Allergies Allergy Verified 10/28/18 12:47 Review of Systems Review of Systems ROS Unobtainable: All systems reviewed & are unremarkable except as noted in HPI and below Constitutional Constitutional: Denies chills, Denies fever(s), Denies lethargy and Denies weakness Gastrointestinal Gastrointestinal: Reports abdominal pain, Denies hematochezia, Denies change in bowel habits, Denies constipation, Denies diarrhea, Reports nausea, Reports vomiting and Reports other (hernia) Genitourinary Genitourinary: Denies abnormal menses, Denies hematuria, Denies urinary frequency, Denies dysuria, Denies flank pain, Denies urinary incontinence, Denies urinary hesitancy, Denies urinary urgency and Denies vaginal discharge Neurologic Neurologic: Denies weakness [facility] Medical History Twin (Acute) Social History Smoking Status: Former smoker Social History Smoking Status: Former smoker Exam Narrative Exam Narrative: GENERAL: Alert and oriented x three, moderately obese, well- appearing female in mild distress. HEENT: Head normocephalic, atraumatic, EOMI, pupils reactive, face symmetric, moist mucous membranes NECK: Supple, full range of motion CARDIOVASCULAR: Regular rate and rhythm without murmurs, rubs or gallops. RESPIRATORY: Breath sounds equal bilaterally, no wheezes rales or rhonchi. ABDOMEN: Soft, positive generalized tenderness. I am able to palpate a small umbilical hernia. It is not easily reduced in the room. Normoactive bowel sounds all 4 quadrants. No guarding or rebound, rigidity, no mass : No CVA tenderness EXTREMITIES: Normal range of motion, no clubbing or edema. Neurovascularly intact NEUROLOGICAL: Cranial nerves II through XII grossly intact. Moving all extremities SKIN: Warm, dry, no petechiae, no rashes or lesions. Initial Vital Signs Initial Vital Signs: Vital Signs Temperature 97.7 F 10/28/18 12:47 Pulse Rate 78 10/28/18 12:47 Respiratory Rate 16 10/28/18 12:47 Blood Pressure 110/74 10/28/18 12:47 Pulse Oximetry 97 10/28/18 12:47 Course Orders Ordered: ED Orders 10/28/18 15:20 Complete Blood Count AUTO DIFF Stat Comprehensive Metabolic Panel Stat Lipase Stat Partial Thromboplastin Time Stat Prothrombin Time INR Stat 10/28/18 15:30 Urine Microscopic Stat 10/28/18 15:50 US abdomen limited Stat Sodium Chloride (Normal Saline 0.9%) 1,000 mls @ 75 mls/hr IV CONT KUSHAL Discontinued Medications Ketorolac Tromethamine (Toradol) 30 mg IV NOW ONE Stop: 10/28/18 15:54 Last Admin: 10/28/18 16:02 Dose: 30 mg Documented by: SHAWN Morphine Sulfate (Morphine) 2 mg IV NOW ONE Stop: 10/28/18 17:24 Last Admin: 10/28/18 17:39 Dose: 2 mg Documented by: DANIKA Vital Signs Vital signs: Vital Signs - 8 hr 10/28/18 12:47 10/28/18 13:30 10/28/18 15:00 Temperature 97.7 F Pulse Rate 78 64 67 Respiratory Rate 16 16 16 Blood Pressure 110/74 Blood Pressure [Right Arm] 149/99 H 112/61 Pulse Oximetry 97 95 98 10/28/18 16:53 Temperature Pulse Rate 67 Respiratory Rate 17 Blood Pressure Blood Pressure [Right Arm] 106/59 L Pulse Oximetry 99 MDM - Abdominal Pain Lab Data Attestation: I reviewed the patient's lab results. Result diagrams: 10/28/18 15:20 10/28/18 15:20 Labs: Lab Results 10/28/18 10/28/18 10/28/18 Range/Units 15:20 15:20 15:20 WBC 11.0 (4.5-11.0) X10^3/uL RBC 4.86 (4.0-5.2) X10^6/uL Hgb 13.7 (12.0-16.0) g/dL Hct 40.1 (36-46) % MCV 82.5 (80-100) fL MCH 28.1 (26-34) PG MCHC 34.1 (30-36) % RDW 14.2 (11.6-14.8) % Plt Count 288 (150-400) X10^3/uL Neut % (Auto) 69.2 (50-75) % Lymph % (Auto) 23.3 L (25-40) % [place] % (Auto) 4.8 (3-14) % Eos % (Auto) 1.7 L (2-4) % Baso % (Auto) 1.0 (0-2) % Neut # (Auto) 7700 H (5991-6522) /uL Lymph # (Auto) 2600 (9938-1870) /uL [place] # (Auto) 500 (0-900) /uL Eos # (Auto) 200 (0-450) /uL Baso # (Auto) 100 (0-100) /uL PT 12.1 (10.1-12.7) SECONDS INR 1.1 (0.9-1.3) APTT 36 (26.4-36.2) SECONDS Sodium 141 (137-145) mmol/L Potassium 4.0 (3.4-5.1) mmol/L Chloride 105 (98-107) mmol/L Carbon Dioxide 24 (22-32) mmol/L BUN 15 (7-17) mg/dL Creatinine 0.60 (0.52-1.04) mg/dL Estimated GFR > 60.0 (>60) mL/min BUN/Creatinine Ratio 25.0 H (6-22) Glucose 86 (70-100) mg/dL Calcium 9.4 (8.4-10.2) mg/dL Total Bilirubin 0.6 (0.2-1.3) mg/dL AST 22 (14-36) IU/L ALT 17 (9-52) IU/L Alkaline Phosphatase 119 (38-126) U/L Total Protein 8.0 (6.3-8.2) g/dL Albumin 4.7 (3.5-5.0) g/dL Globulin 3.3 (1.7-4.1) g/dL Albumin/Globulin Ratio 1.4 (1.0-2.8) Lipase 61 (23-300) U/L Urine RBC (0-5/HPF) Urine WBC (0-5/HPF) Ur Squamous Epith Cells (0-5/HPF) Urine Bacteria (None) Ur Culture Indicated? 10/28/18 Range/Units 15:30 WBC (4.5-11.0) X10^3/uL RBC (4.0-5.2) X10^6/uL Hgb (12.0-16.0) g/dL Hct (36-46) % MCV (80-100) fL MCH (26-34) PG MCHC (30-36) % RDW (11.6-14.8) % Plt Count (150-400) X10^3/uL Neut % (Auto) (50-75) % Lymph % (Auto) (25-40) % [place] % (Auto) (3-14) % Eos % (Auto) (2-4) % Baso % (Auto) (0-2) % Neut # (Auto) (1455-1007) /uL Lymph # (Auto) (9649-1394) /uL [place] # (Auto) (0-900) /uL Eos # (Auto) (0-450) /uL Baso # (Auto) (0-100) /uL PT (10.1-12.7) SECONDS INR (0.9-1.3) APTT (26.4-36.2) SECONDS Sodium (137-145) mmol/L Potassium (3.4-5.1) mmol/L Chloride (98-107) mmol/L Carbon Dioxide (22-32) mmol/L BUN (7-17) mg/dL Creatinine (0.52-1.04) mg/dL Estimated GFR (>60) mL/min BUN/Creatinine Ratio (6-22) Glucose (70-100) mg/dL Calcium (8.4-10.2) mg/dL Total Bilirubin (0.2-1.3) mg/dL AST (14-36) IU/L ALT (9-52) IU/L Alkaline Phosphatase (38-126) U/L Total Protein (6.3-8.2) g/dL Albumin (3.5-5.0) g/dL Globulin (1.7-4.1) g/dL Albumin/Globulin Ratio (1.0-2.8) Lipase (23-300) U/L Urine RBC 0-1/hpf (0-5/HPF) Urine WBC 0-1/hpf (0-5/HPF) Ur Squamous Epith Cells 1-5 /hpf (0-5/HPF) Urine Bacteria None seen (None) Ur Culture Indicated? Cult not indicated Point of care testing: Point of Care Testing Test Results Negative Urine Dip Bedside Urine Glucose Negative Bedside Urine Bilirubin + 1 Bedside Urine Ketone - Negative Urine Specific [place] 1.020 Bedside Urine Occult Blood - Negative Bedside Urine pH 5.5 Bedside Urine Protein - Negative Bedside Urine Urobilinogen - Negative Bedside Urine Nitrite - Negative Bedside Urine Leukocytes +/- 15 Esterase Imaging Data US - abdomen: Radiologist's impression: [address] [address] Ultrasound Report Signed Patient: Katiana Chery R#: [id number] : 1995Acct:[id number] Age/Sex: 22 / FDate of Service: 10/28/18 Loc: ED Accession Number: [id number] Procedure: US abdomen limited Ordering Provider: Anh Jacobs D.O. PROCEDURE: US ABDOMEN LIMITED INDICATIONS: HERNIA?, UMBILICAL TECHNIQUE: Real-time focused scanning was performed of the abdomen, with image documentation. COMPARISON: [facility], CT, CT ABD PELVIS W CON, 01/30/2016, 15:25. FINDINGS: Scanning was performed of the area of clinical concern involving the periumbilical region. At this site, there is a hernia seen, which appears to contain fat. No peristalsis is seen. No malignancy seen with Valsalva. IMPRESSION: Apparent fat-containing periumbilical hernia seen. If it would be helpful for clinical management decision making, please consider a dedicated CT of the abdomen and pelvis with IV and oral contrast. Dictated by: Willie Forbes M.D. on 10/28/2018 at 16:49 Approved by: Willie Forbes M.D. on 10/28/2018 at 16:52 [facility] Narrative Medical decision making narrative: Patient seen by Dr. Sumner. Plan for OR for umbilical hernia. Patient has ultrasound that shows possible fat but patient has been having active vomiting today. Dr. Sumner evaluated and after my attempt reduction which was unsuccessful and he attempted at bedside patient and Dr. hernandez he decided plan for surgical repair. Is breast-feeding, she was set up with breastpump and plan for OR this evening. Patient placed in observatoin. Discharge Plan Departure Patient Disposition: Admitted as Observation Clinical Impression: Hernia, umbilical
[2018-10-28 15:41] LABS: PTT Partial Thromboplastin Tim 36 SECONDS (26.4-36.2)
[2018-10-28 15:43] LABS: Alanine Aminotransferase 17 IU/L (9-52); Albumin 4.7 g/dL (3.5-5.0); Albumin Globulin Ratio 1.4 (1.0-2.8); Alkaline Phosphatase 119 U/L (38-126); Aspartate Aminotransferase 22 IU/L (14-36); Bilirubin Total 0.6 mg/dL (0.2-1.3); Blood Urea Nitrogen 15 mg/dL (7-17); Calcium 9.4 mg/dL (8.4-10.2); Carbon Dioxide 24 mmol/L (22-32); Chloride 105 mmol/L (98-107); Estimated Glomerular Filt Rate > 60.0 mL/min (>60); Globulin 3.3 g/dL (1.7-4.1); Glucose 86 mg/dL (70-100); HEMOLYSIS < 15 (0-50); Lipase 61 U/L (23-300); Sodium 141 mmol/L (137-145)
--- NOTE | 2018-10-28 15:50 | DI.US.S_ITS ---
PROCEDURE: US ABDOMEN LIMITED INDICATIONS: HERNIA?, UMBILICAL TECHNIQUE: Real-time focused scanning was performed of the abdomen, with image documentation. COMPARISON: [facility], CT, CT ABD PELVIS W CON, 01/30/2016, 15:25. FINDINGS: Scanning was performed of the area of clinical concern involving the periumbilical region. At this site, there is a hernia seen, which appears to contain fat. No peristalsis is seen. No malignancy seen with Valsalva. IMPRESSION: Apparent fat-containing periumbilical hernia seen. If it would be helpful for clinical management decision making, please consider a dedicated CT of the abdomen and pelvis with IV and oral contrast. Dictated by: Willie Forbes M.D. on 10/28/2018 at 16:49 Approved by: Willie Forbes M.D. on 10/28/2018 at 16:52
[2018-10-28 15:51] LABS: Bacteria Urine None Seen
[2018-10-28 15:58] LABS: WBC Urine 0-1/HPF (0-5/HPF)
[2018-10-28 15:59] LABS: Culture Indicated Urine Cult Not Indicated; RBC Urine 0-1/HPF (0-5/HPF); Squamous Epithelial Cell Urine 1-5 /HPF (0-5/HPF)
[2018-10-28] MEDS: KETOROLAC 60 MG/2 ML VIAL 30 MG IV (16:02)
[2018-10-28] MEDS: MORPHINE 2 MG/ML INJ IV (17:39)
[2018-10-28] MEDS: SODIUM CHLORIDE 0.9% 1,000 ML 75 ML IV (18:41)
--- NOTE | 2018-10-28 19:12 | PM.HP.1 ---
History of Present Illness History of Present Illness Date Patient Seen: 10/28/18 Time Patient Seen: 19:21 Chief complaint: Abd pain Narrative: 22-year-old female with a known umbilical hernia presents to the emergency room with acute onset of umbilical pain. The past 2 days her umbilical hernia has been protruding and she has been unable to reduce it. Her pain became significantly worse today for which she presented to the emergency room and was associated with nausea vomiting. She is passing flatus. No fever chills malaise. Ultrasound demonstrates an umbilical hernia likely fat containing. Attempt was made to reduce the hernia in the emergency room but this was unsuccessful. She has no significant past medical or surgical history. She recently had twins and is breast feeding. Patient History Medical History Twin (Acute) Social History household members: spouse and children Smoking Status: Current every day smoker alcohol intake: never Family & Social History Social History: household members spouse,children Prior Living Arrangements House Safety & Behavioral: Feels Safe in Current Yes Environment Been Physically Hurt or No Threatened By a Person Suicidal Ideation Description None Suicide Plan Description No Plan Tobacco & Substance use: Tobacco type cigarettes Smoking Status Current every day smoker alcohol intake never alcohol intake frequency other Substance Use Type does not use Meds Home Medications and Allergies Home Medications Medication Instructions Recorded Confirmed Type acetaminophen [Tylenol] 650 mg PO Q4H PRN 09/08/18 10/28/18 History sertraline 100 mg PO QPM 09/08/18 10/28/18 History Allergies Allergy/AdvReac Type Severity Reaction Status Date / Time No Known Drug Allergies Allergy Verified 10/28/18 12:47 Review of Systems Review of Systems ROS Unobtainable: All systems reviewed & are unremarkable except as noted in HPI and below Exam Vital Signs (past 8 hours): - 10/28/18 12:47 10/28/18 13:30 10/28/18 15:00 Temperature 97.7 F Pulse Rate 78 64 67 Respiratory Rate 16 16 16 Blood Pressure 110/74 Blood Pressure [Right Arm] 149/99 H 112/61 Pulse Oximetry 97 95 98 10/28/18 16:53 10/28/18 17:49 10/28/18 18:40 Temperature 98.7 F Pulse Rate 67 76 78 Respiratory Rate 17 16 18 Blood Pressure 124/76 Blood Pressure [Right Arm] 106/59 L 110/68 Pulse Oximetry 99 99 98 Oxygen Delivery Method Room Air Narrative Exam Narrative: General-adult female uncomfortable, well nourished HEENT-moist mucous membranes, no scleral icterus Neck-supple with full range of motion, no lymphadenopathy Chest- no labored respirations, clear to auscultation bilaterally Cardiac-regular rate and rhythm Abdomen-tender no peritonitis, irreducible umbilical hernia, no overlaying skin changes Extremities-no edema, warm well perfused Neurological-alert and oriented x 3. No focal deficits Skin-normal temperature and turgor, no rashes or ulcers Objective Labs Result Diagrams: 10/28/18 15:20 10/28/18 15:20 Labs: Laboratory Results - last 24 hr 10/28/18 10/28/18 10/28/18 15:20 15:20 15:20 WBC 11.0 RBC 4.86 Hgb 13.7 Hct 40.1 MCV 82.5 MCH 28.1 MCHC 34.1 RDW 14.2 Plt Count 288 Neut % (Auto) 69.2 Lymph % (Auto) 23.3 L [place] % (Auto) 4.8 Eos % (Auto) 1.7 L Baso % (Auto) 1.0 Neut # (Auto) 7700 H Lymph # (Auto) 2600 [place] # (Auto) 500 Eos # (Auto) 200 Baso # (Auto) 100 PT 12.1 INR 1.1 APTT 36 Sodium 141 Potassium 4.0 Chloride 105 Carbon Dioxide 24 BUN 15 Creatinine 0.60 Estimated GFR > 60.0 BUN/Creatinine Ratio 25.0 H Glucose 86 Calcium 9.4 Total Bilirubin 0.6 AST 22 ALT 17 Alkaline Phosphatase 119 Total Protein 8.0 Albumin 4.7 Globulin 3.3 Albumin/Globulin Ratio 1.4 Lipase 61 Urine RBC Urine WBC Ur Squamous Epith Cells Urine Bacteria Ur Culture Indicated? 10/28/18 15:30 WBC RBC Hgb Hct MCV MCH MCHC RDW Plt Count Neut % (Auto) Lymph % (Auto) [place] % (Auto) Eos % (Auto) Baso % (Auto) Neut # (Auto) Lymph # (Auto) [place] # (Auto) Eos # (Auto) Baso # (Auto) PT INR APTT Sodium Potassium Chloride Carbon Dioxide BUN Creatinine Estimated GFR BUN/Creatinine Ratio Glucose Calcium Total Bilirubin AST ALT Alkaline Phosphatase Total Protein Albumin Globulin Albumin/Globulin Ratio Lipase Urine RBC 0-1/hpf Urine WBC 0-1/hpf Ur Squamous Epith Cells 1-5 /hpf Urine Bacteria None seen Ur Culture Indicated? Cult not indicated Assessment & Plan Assessment and plan (1) Hernia, umbilical: Current visit: Yes Status: Acute Assessment & Plan narrative: 22-year-old female with an acutely incarcerated umbilical hernia. I attempted to reduce the hernia after administration of morphine but was unable to do so. She is afebrile, without peritonitis or leukocytosis. I reviewed her ultrasound which demonstrates an umbilical hernia. I suspect it is likely fat containing but she has significant pain, nausea and emesis and it would be prudent to ensure there is no bowel within the hernia. We discussed the operation and its associated risks including bleeding, infection, reoccurence. Her questions have been answered and she is in agreement with this plan. Quality VTE Deep Vein Thrombosis/Pulmonary Embolism Present on Admission: No
--- NOTE | 2018-10-28 19:34 | PC.NURSE ---
Pt arrived on unit at approx 1850. She rated her pain 6-7/10. She is A and O x 4, having pain for two days, and vomiting today at home. VSS. NKA, can ambulate independently.
[2018-10-28] MEDS: DEXTROSE 5%-LACTATED RINGERS 1,000 ML 84 ML IV (20:48)
--- NOTE | 2018-10-28 20:57 | SUR.HOLD ---
CBG checked, blood sugar low dr hoffmann made aware, D5LR hung for fluids and pt asymptomatic.
[2018-10-28] MEDS: CEFAZOLIN 2 GM/100 ML FROZ.PIGGY IV (22:00)
--- NOTE | 2018-10-28 22:16 | SUR.OPER ---
Supine on padded OR bed, head on pillow, arms secured on padded arm boards at <90 degrees abduction, legs uncrossed, safety belt at thigh, tape over blanket over lower legs.
[2018-10-28] MEDS: BUPIVACAINE 0.25% (PF) VIAL 30 ML INJ (22:23)
--- NOTE | 2018-10-28 23:08 | PM.OP.1 ---
Operative Date/Time/Diagnoses Date of procedure: 10/28/18 Time of procedure: 23:08 Pre-op diagnosis: Incarcerated umbilical hernia Post-op diagnosis: same Procedure & Clinicians Procedure: Open umbilical hernia repair with mesh Same procedure as scheduled: Yes Indications: 22-year-old female presents with a incarcerated umbilical hernia for the past 24 hours no peritonitis or fever. Ultrasound demonstrated likely fat containing hernia however was significantly painful and associated with nausea and vomiting was therefore taken to the operating room for an open umbilical hernia repair with mesh. Surgeon: Mannie Sumner Click Yes if Unassisted: Yes Anesthesia Type: General Operative Notes Findings: Incarcerated umbilical hernia containing omentum Estimated Blood Loss (mL): 5 Procedure in detail: The patient was brought to the operating room placed supine on the table. Bilateral lower extremity compression devices were applied. She received 2 g of Ancef prior to skin incision. General anesthesia was induced and she was intubated with an endotracheal tube. She was prepped and draped in sterile fashion. Time-out was performed to ensure the correct patient procedure necessary equipment within the operating room. The skin was infiltrated with 0.25% bupivacaine. A infraumbilical curvilinear incision was made through the skin and subcutaneous tissues. The umbilical hernia sac was identified and freed from its fascial attachments circumferentially. The hernia sac was inspected and contained omentum. The hernia sac was reduced into the abdomen. A medium-size c-qur V-PATCH was placed into the abdomen through the fascial defect. The patch was secured to the fascia in an interrupted fashion circumferentially with 0 Prolene suture. The fascia was reapproximated over the mesh with 0 Prolene suture in interrupted [id number] fashion. Hemostasis was achieved. The wound was irrigated with sterile saline. Subcutaneous tissues were reapproximated using 3 0 Vicryl skin closed with 4 0 Monocryl followed by Dermabond. Sponge instrument count at the end of the operation was correct. The patient tolerated procedure well was extubated and transferred to postoperative care unit in stable condition Complications: none Post-operative Condition: stable Disposition: observation
--- NOTE | 2018-10-28 23:21 | SUR.PHASEI ---
Pt arrived to [facility], c/o pain, dr hoffmann medicated pt for pain. pt more comfortable after. Dr. Sumner spoke with pt . Report called to Acute care.
--- NOTE | 2018-10-28 23:30 | SUR.PHASEI ---
Report called to terence West transported up to room 229 and left in stable condition.
[2018-10-28] MEDS: ONDANSETRON 4 MG/2 ML INJ IV (23:36)
--- NOTE | 2018-10-28 23:36 | SUR.PHASEI ---
Pt nauseated, medicated with ondansetron
--- NOTE | 2018-10-28 23:38 | SUR.PHASEI ---
Queaze ease to bedside.
[2018-10-29] VITALS (7 sets, daily range): BP systolic 94–114; BP diastolic 50–69; PULSE 55–78; RESP 10–18; TEMP 36.4–36.9; O2SAT 99–100
--- NOTE | 2018-10-29 00:04 | SUR.PHASEI ---
nausea resoleved, pt transported up to room
--- NOTE | 2018-10-29 00:05 | SUR.PHASEI ---
AQbdomen remains intact.
[2018-10-29] MEDS: MORPHINE 2 MG/ML INJ IV ×3 (00:20→10:11)
[2018-10-29] MEDS: SODIUM CHLORIDE 0.9% 1,000 ML 75 ML IV (00:24)
[2018-10-29] MEDS: KETOROLAC 30 MG/ML VIAL IV (05:43)
[2018-10-29] MEDS: ACETAMINOPHEN 325 MG TABLET 650 MG PO (05:43)
--- NOTE | 2018-10-29 11:08 | PC.NURSE ---
Addendum entered by Christina Archuleta R.N. 10/29/18 12:13: DC - pt sister arrived with her twins, pt states morphine provided adequate relief and plans to breastfeed prior to discharge, instructions reviewed, paperwork provided, when ready, belongings gathered, including clothing and cell phones and chargers, tsf to and escorted to family car. Original Note: AM NOTE - pt is resting comfortably in bed, discussed pain mgt, and states incisional discomfort 6 on scale 0/10, abd is soft, + bt, denies nausea and estela diet, given 2mg iv morphine and pt will take tylenol and ibuprofen at home, hr reg 56. ra 100%.
--- NOTE | 2018-10-29 11:47 | PM.DS.1 ---
History of Present Illness History of Present Illness Chief complaint: Abd pain Narrative: 22-year-old female with a known umbilical hernia presents to the emergency room with acute onset of umbilical pain. The past 2 days her umbilical hernia has been protruding and she has been unable to reduce it. Her pain became significantly worse today for which she presented to the emergency room and was associated with nausea vomiting. She is passing flatus. No fever chills malaise. Ultrasound demonstrates an umbilical hernia likely fat containing. Attempt was made to reduce the hernia in the emergency room but this was unsuccessful. She has no significant past medical or surgical history. She recently had twins and is breast feeding. Discharge Providers Provider Date of admission: 10/28/18 18:07 Discharge Date: 10/29/18 Discharge provider: Mannie Sumner MD Summary Hospital Course Discharge Diagnosis: Incarcerated umbilical hernia Hospital Course: Patient underwent a open umbilical hernia repair with mesh 10/28 for or an incarcerated umbilical hernia. The was omentum within the hernia postoperatively she did well without issue. Pain is controlled she is tolerating a diet ambulatory and ready for discharge. Status at Discharge Cognitive/behavioral status at discharge: oriented Functional status at discharge: independent ambulation Overall status at discharge: patient is back to baseline Time Spent with Patient Time spent: Less than 30 minutes Exam Vital Signs (past 8 hours): - 10/29/18 08:00 Temperature 97.7 F Pulse Rate 58 L Respiratory Rate 16 Blood Pressure 114/64 Pulse Oximetry 100 Oxygen Delivery Method Room Air Oxygen Flow Rate 0 Narrative Exam Narrative: Adult female were oriented no acute distress Abdomen soft nontender nondistended. Umbilical incision clean dry intact. Appropriately tender to palpation. No recurrence of hernia. Objective Labs Result Diagrams: 10/28/18 15:20 10/28/18 15:20 Labs: Laboratory Results - last 24 hr 10/28/18 10/28/18 10/28/18 15:20 15:20 15:20 WBC 11.0 RBC 4.86 Hgb 13.7 Hct 40.1 MCV 82.5 MCH 28.1 MCHC 34.1 RDW 14.2 Plt Count 288 Neut % (Auto) 69.2 Lymph % (Auto) 23.3 L [place] % (Auto) 4.8 Eos % (Auto) 1.7 L Baso % (Auto) 1.0 Neut # (Auto) 7700 H Lymph # (Auto) 2600 [place] # (Auto) 500 Eos # (Auto) 200 Baso # (Auto) 100 PT 12.1 INR 1.1 APTT 36 Sodium 141 Potassium 4.0 Chloride 105 Carbon Dioxide 24 BUN 15 Creatinine 0.60 Estimated GFR > 60.0 BUN/Creatinine Ratio 25.0 H Glucose 86 Calcium 9.4 Total Bilirubin 0.6 AST 22 ALT 17 Alkaline Phosphatase 119 Total Protein 8.0 Albumin 4.7 Globulin 3.3 Albumin/Globulin Ratio 1.4 Lipase 61 Urine RBC Urine WBC Ur Squamous Epith Cells Urine Bacteria Ur Culture Indicated? 10/28/18 15:30 WBC RBC Hgb Hct MCV MCH MCHC RDW Plt Count Neut % (Auto) Lymph % (Auto) [place] % (Auto) Eos % (Auto) Baso % (Auto) Neut # (Auto) Lymph # (Auto) [place] # (Auto) Eos # (Auto) Baso # (Auto) PT INR APTT Sodium Potassium Chloride Carbon Dioxide BUN Creatinine Estimated GFR BUN/Creatinine Ratio Glucose Calcium Total Bilirubin AST ALT Alkaline Phosphatase Total Protein Albumin Globulin Albumin/Globulin Ratio Lipase Urine RBC 0-1/hpf Urine WBC 0-1/hpf Ur Squamous Epith Cells 1-5 /hpf Urine Bacteria None seen Ur Culture Indicated? Cult not indicated Discharge Plan Discharge Plan Patient Disposition: Home Discharge Med Rec/Prescriptions Prescriptions: New ibuprofen 200 mg capsule 800 mg PO QID Qty: 60 RF: 0 Continued sertraline 100 mg Tablet 100 mg PO QPM RF: 0 acetaminophen [Tylenol] 325 mg Capsule 650 mg PO Q4H PRN (Reason: Pain (Scale Score 1-3)) RF: 0 Follow up/Referrals: Mannie Sumner MD [Physician] - As previously scheduled Provider Discharge Instructions Diet: Diet as Tolerated Activity: No lifting >20 lbs x 4 weeks. Walking only for exercise for [address] while taking narcotics. Skin/Wound/Dressing Care Report to your healthcare provider any signs of infection, such as:: chills, fever, increased pain, unusual drainage and unusual redness Visit Report/Discharge Packet Instructions: DI for Hernia Repair, [facility]: Wound Care Discharge Data Attending Provider: Mannie Sumner Admit Date/Time: 10/28/18 18:07 Quality VTE Deep Vein Thrombosis/Pulmonary Embolism Present on Admission: No
== END 2018-10-29 11:30 | disposition home or self-care (01) ==
LOC: ED 17:51 → AC 18:09
PROVIDERS: Admitting Provider Surgery; Emergency Provider Emergency Medicine; Visit Provider Surgery
PROC: (CPT 49585; principal; 2018-10-28 20:15)
DX: K42.0 Umbilical hernia with obstruction, without gangrene (principal); R10.9 Unspecified abdominal pain; F17.210 Nicotine dependence, cigarettes, uncomplicated
CPT/HCPCS: 49585; 36591; 76705; 80053; 81003; 81015; 81025; 82962; 83690; 85025; 85610; 85730; 96361; 96374; 96375; 96376; 99220; 99283; 99284; C1781; G0378; J0330; J0690; J1100; J1885; J2250; J2270; J2405; J2704; J3010; J7121

== ENCOUNTER 2018-10-30 09:51 | Emergency (ER) | payer OTHER, MEDICAID, SELFPAY ==
[2018-10-28 18:49] VITALS: BMI 31.1
[2018-10-30 10:04] VITALS: BP 120/73; PULSE 85; RESP 16; TEMP 37; O2SAT 96
--- NOTE | 2018-10-30 10:32 | ED_ITS ---
HPI - Abdominal Pain General Chief Complaint: Abdominal Pain Stated Complaint: Shoulder to abd. severe pain post surgery t-2 Time Seen by Provider: 10/30/18 10:14 Source: patient Mode of arrival: ambulatory Limitations: no limitations History of Present Illness HPI narrative: Patient comes emergency department complaining of pain in her abdomen and chest and neck after being discharged from the hospital yesterday. Patient states she had a hernia repair, and that she was supposed to be prescribed Toradol. She received Toradol in the hospital, and states that it worked very well for her pain. However, as she believes that her prescription was for gotten, because she was never given a prescription for Toradol. Patient states that since not having any pain medication, she has developed the pain described above. She states she has not had any fevers, chills, cough, shortness of breath, calf pain or swelling, dysuria, or nausea. She states she otherwise feels okay. No other complaints at this time. Related Data Home Medications Medication Instructions Recorded Confirmed acetaminophen [Tylenol] 650 mg PO Q4H PRN 09/08/18 10/28/18 sertraline 100 mg PO QPM 09/08/18 10/28/18 Previous Rx's Medication Instructions Recorded ibuprofen 800 mg PO QID #60 cap 10/29/18 ketorolac 10 mg PO TID PRN #30 tab 10/30/18 oxycodone 5 mg capsule 5 mg PO Q6H PRN #30 cap 10/30/18 Allergies Allergy/AdvReac Type Severity Reaction Status Date / Time No Known Drug Allergies Allergy Verified 10/28/18 12:47 Review of Systems Review of Systems ROS Unobtainable: All systems reviewed & are unremarkable except as noted in HPI and below Constitutional Constitutional: Denies chills, Denies fatigue, Denies fever(s), Denies frequent falls, Denies lethargy and Denies weakness Eyes Eyes: Denies change in vision, Denies eye discharge, Denies irritation and Denies loss of vision ENT Ears, Nose, Mouth, and Throat: Denies change in voice, Denies dizziness, Denies neck pain, Denies sore throat and Denies throat swelling Cardiovascular Cardiovascular: Reports chest pain, Denies irregular heart rhythm, Denies lightheadedness, Denies palpitations, Denies dyspnea, Denies dyspnea on exertion and Denies orthopnea Respiratory Respiratory: Denies cough, Denies dyspnea, Denies dyspnea on exertion and Denies wheezing Gastrointestinal Gastrointestinal: Reports abdominal pain, Denies change in bowel habits, Denies diarrhea, Denies nausea and Denies vomiting Genitourinary Genitourinary: Denies hematuria, Denies flank pain, Denies urinary incontinence and Denies urinary urgency Musculoskeletal Musculoskeletal: Denies back pain, Denies muscle weakness, Denies neck pain, Denies numbness and Denies tingling Integumentary/Breasts Skin/Breast: Denies pruritus, Denies erythema, Denies rash and Denies wounds Neurologic Neurologic: Denies behavioral changes, Denies confusion, Denies dizziness, Denies frequent falls, Denies loss of vision, Denies numbness, Denies tingling and Denies weakness Psychiatric Psychiatric: Denies anxiety, Denies behavioral changes, Denies confusion, Denies depression, Denies homicidal ideation and Denies suicidal ideation Endocrine Endocrine: Denies fatigue, Denies flushing and Denies palpitations Hematologic/Lymphatic Hematologic/Lymphatic: Denies easy bruising Allergic/Immunologic Allergic/Immunologic: Denies urticaria, Denies throat swelling and Denies wheezing [facility] Medical History (Updated 10/30/18 @ 10:38 by Lisa Dubois MD) Abdominal pain (Inactive) Hernia, umbilical (Inactive) Premature labor (Acute) Twin gestation in third trimester (Acute) Twin (Acute) Surgical History (Updated 10/30/18 @ 10:34 by Lisa Dubois MD) H/O hernia repair (Acute) Social History household members: spouse and children Smoking Status: Current every day smoker alcohol intake: never Social History household members: spouse and children Smoking Status: Current every day smoker alcohol intake: never Exam Initial Vital Signs Initial Vital Signs: Vital Signs Temperature 98.6 F 10/30/18 10:04 Pulse Rate 85 10/30/18 10:04 Respiratory Rate 16 10/30/18 10:04 Blood Pressure 120/73 10/30/18 10:04 Pulse Oximetry 96 10/30/18 10:04 Const General: cooperative and well developed Nutritional Appearance: well nourished Orientation: alert, awake, oriented x3 and not confused HENMT Head: normocephalic and atraumatic Ears: external ears normal Nose: external nose normal and No nasal discharge Face and sinus: face symmetric and No dry mucous membranes Mouth: oral mucosae normal and moist mucous membranes Teeth and gingiva: dentition normal Eyes General: appearance normal, both eyes and all related structures Eyelids: eyelids normal Conjunctivae: conjunctivae normal Sclera: sclerae normal Pupils: PERRL EOM: EOM intact bilaterally Neck Neck: normal visual inspection, trachea midline, No lymphadenopathy, No midline deformity and No JVD Lymphatic: No lymphedema Chest Chest: normal inspection of the chest Resp Effort & Inspection: normal respiratory effort, able to speak in complete sentences, no respiratory distress and no use of accessory muscles Auscultation: clear to auscultation bilaterally, no rales, no rhonchi and no wheezes Cardio Rate: regular rate Rhythm: regular rhythm Heart Sounds: no click, no gallops, no murmurs and no rubs Pulses: normal peripheral pulses GI Inspection: distended (Mild) Palpation: soft, no hepatosplenomegaly, No guarding, No pulsatile mass and tender (Mild, diffuse) Other: Patient has umbilical incision site which is clean dry and intact. Back/Spine/Pelvis Back: No CVA tenderness Cervical Spine: cervical ROM normal and No pain with cervical ROM Thoracic/Lumbar Spine: thoracic and lumbar spine normal to inspection Skin General: no rashes or lesions noted, No jaundice and No petechiae Neuro General: alert, oriented x3, gait normal and no focal motor deficits Speech: speech normal Extrem General: full ROM, no clubbing, cyanosis or edema, no pedal edema and no calf tenderness Psych Appearance: well kempt Mental Status: mental status grossly normal Attitude: cooperative Thought Content: normal and suicidality Judgment: judgment good Course Course Course Narrative: Patient was treated symptomatically with Toradol emergency department. I did not find any evidence of was a more serious cause of the pain, and as such, I did not feel that the patient needed further workup in the emergency department. I have given her prescription for Toradol to take at home. We have discussed home management of symptoms, as well as the usual indications for return. Orders Ordered: Discontinued Medications Ketorolac Tromethamine (Toradol) 60 mg IM NOW ONE Stop: 10/30/18 10:26 Last Admin: 10/30/18 10:33 Dose: 60 mg Documented by: KENZIE Vital Signs Vital signs: Vital Signs - 8 hr 10/30/18 10:04 Temperature 98.6 F Pulse Rate 85 Respiratory Rate 16 Blood Pressure 120/73 Pulse Oximetry 96 MDM - Abdominal Pain Medical Records Attestation: I reviewed the patient's medical records. Discharge Plan Departure Patient Disposition: Home Clinical Impression: Abdominal pain Qualifiers: Abdominal location: generalized Qualified Code(s): R10.84 - Generalized abdominal pain Discharge Date/Time: 10/30/18 11:10 Instructions: DI for Abdominal Pain-Adult Activity Restrictions/Additional Instructions: Your prescription has been electronically transmitted to [facility]. Please follow up with your primary care physician and your surgeon, as directed. Prescriptions: New ketorolac 10 mg tablet 10 mg PO TID PRN (Reason: pain) Qty: 30 RF: 0 No Action oxycodone 5 mg capsule 5 mg PO Q6H PRN (Reason: pain) Qty: 30 RF: 0 sertraline 100 mg Tablet 100 mg PO QPM RF: 0 acetaminophen [Tylenol] 325 mg Capsule 650 mg PO Q4H PRN (Reason: Pain (Scale Score 1-3)) RF: 0 ibuprofen 200 mg capsule 800 mg PO QID Qty: 60 RF: 0
[2018-10-30] MEDS: KETOROLAC 60 MG/2 ML VIAL IM (10:33)
[2018-10-30 11:17] VITALS: BP 108/63; PULSE 76; RESP 18; O2SAT 97
== END 2018-10-30 11:10 | disposition home or self-care (01) ==
PROVIDERS: Emergency Provider Emergency Medicine
DX: R10.84 Generalized abdominal pain (principal)
CPT/HCPCS: 96372; 99282; 99283; J1885

== ENCOUNTER → 2019-01-28 10:30 | Outpatient (CLI) | payer OTHER, MEDICAID, SELFPAY ==
[2018-10-28 18:49] VITALS: BMI 31.1
[2019-01-28 11:03] LABS: Add Manual Diff / Slide Review NO; Basophils Absolute Auto 100 /uL (0-100); Basophils Percent Auto 0.7 % (0-2); Eosinophils Absolute Auto 400 /uL (0-450); Eosinophils Percent Auto 4.6 % (2-4); Hematocrit 42.5 % (36-46); Hemoglobin 14.6 g/dL (12.0-16.0); Lymphocytes Absolute Auto 2300 /uL (1100-4500); Lymphocytes Percent Auto 29.4 % (25-40); Mean Corpuscular HGB Conc 34.4 % (30-36); Mean Corpuscular Volume 84.3 fL (80-100); Monocytes Absolute Auto 600 /uL (0-900); Monocytes Percent Auto 7.6 % (3-14); Neutrophils Absolute Auto 4500 /uL (1500-7000); Neutrophils Percent Auto 57.7 % (50-75); Platelet Count 307 X10^3/uL (150-400); Red Blood Cell Count 5.05 X10^6/uL (4.0-5.2); Red Cell Distribution Width 13.5 % (11.6-14.8); White Blood Cell Count 7.7 X10^3/uL (4.5-11.0)
[2019-01-28 12:10] LABS: TSH w/ Reflex to FT4 1.51 uIU/mL (0.47-4.68)
== END ==
PROVIDERS: PCP Specialist; Visit Provider Specialist
DX: D64.9 Anemia, unspecified (principal); R53.83 Other fatigue
CPT/HCPCS: 36415; 84443; 85025

== ENCOUNTER → 2019-08-13 16:52 | Outpatient (CLI) | payer OTHER, MEDICAID, SELFPAY ==
[2018-10-28 18:49] VITALS: BMI 31.1
--- NOTE | 2019-08-13 16:54 | DI.US.S_ITS ---
PROCEDURE: US OB <= 14 WEEKS FETUS INDICATIONS: DATING AND VIABILITY OUTSIDE/PRIOR DATING DATA: Last menstrual period (LMP): Unknown. LMP-based estimated date of delivery (SALENA): Unknown. First dating scan (date and location): 08/13/19. Estimated date of delivery (SALENA) from first dating scan: 04/07/20. TECHNIQUE: Real-time scanning was performed of the fetus and maternal pelvic organs, with image documentation. Endovaginal scanning was also performed to better visualize the fetus and maternal ovaries. COMPARISON: None. FINDINGS: Embryo: Single living intrauterine fetus is present with a crown-rump length measuring 0.36 cm, 6 weeks zero days. heart rate measures 99 beats per minute. Subchorionic hemorrhage is present measuring 1.1 x 0.6 x 0.8 cm. Measurement variability in dating: +/- 4 weeks by LMP, +/- 7 days by mean sac diameter (use before 6 weeks gestation if crown-rump length not able to be measured), +/- 5 days by crown-rump length (up to 8 weeks 6 days gestation), +/- 7 days by crown-rump length (up to 13 weeks 6 days gestation). Maternal organs: Ovaries are unremarkable bilaterally. Limited images through the kidneys demonstrate no hydronephrosis. IMPRESSION: Single living intrauterine fetus with a gestational age of 6 weeks zero days. Borderline bradycardia. Recommend correlation with serial beta hCG values and if necessary, repeat ultrasound could be considered. Small satinder-gestational hemorrhage Dictated by: Leonard Christensen M.D. on 08/13/2019 at 18:05 Approved by: Leonard Christensen M.D. on 08/13/2019 at 18:08
== END ==
PROVIDERS: PCP Specialist; Referring Provider Specialist; Visit Provider Specialist
DX: Z34.91 Encounter for supervision of normal pregnancy, unspecified, first trimester (principal); Z3A.01 Less than 8 weeks gestation of pregnancy
CPT/HCPCS: 76801; 76817

== ENCOUNTER → 2019-08-17 12:19 | Outpatient (CLI) | payer OTHER, MEDICAID, SELFPAY ==
[2018-10-28 18:49] VITALS: BMI 31.1
[2019-08-17 13:45] LABS: Appearance Urine UA CLEAR; Bilirubin Urine UA NEGATIVE (NEGATIVE); Color Urine UA ORANGE; Glucose Urine UA NEGATIVE (Negative); Ketones Urine UA TRACE (NEGATIVE); Leukocyte Esterase Urine UA TRACE (NEGATIVE); Nitrite Urine UA NEGATIVE (Negative); Occult Blood Urine UA TRACE-INTACT (Negative); Protein Urine UA 1+ (Negative); pH Urine UA 6.5 (4.5-8.0)
[2019-08-17 13:46] LABS: Bacteria Urine None Seen
[2019-08-17 13:48] LABS: Add Manual Diff / Slide Review NO; Basophils Absolute Auto 100 /uL (0-100); Basophils Percent Auto 0.7 % (0-2); Eosinophils Absolute Auto 0 /uL (0-450); Eosinophils Percent Auto 0.4 % (2-4); Hematocrit 39.6 % (36-46); Hemoglobin 13.3 g/dL (12.0-16.0); Lymphocytes Absolute Auto 2100 /uL (1100-4500); Lymphocytes Percent Auto 21.6 % (25-40); Mean Corpuscular HGB Conc 33.6 % (30-36); Mean Corpuscular Hemoglobin 28.5 PG (26-34); Mean Corpuscular Volume 84.8 fL (80-100); Monocytes Absolute Auto 500 /uL (0-900); Monocytes Percent Auto 5.4 % (3-14); Neutrophils Absolute Auto 6800 /uL (1500-7000); Neutrophils Percent Auto 71.9 % (50-75); Platelet Count 276 X10^3/uL (150-400); Red Blood Cell Count 4.67 X10^6/uL (4.0-5.2); Red Cell Distribution Width 13.4 % (11.6-14.8); White Blood Cell Count 9.5 X10^3/uL (4.5-11.0)
[2019-08-17 13:58] LABS: Culture Indicated Urine Cult Not Indicated; Mucus Urine 2+ (Negative); RBC Urine 1-5/HPF (0-5/HPF); Squamous Epithelial Cell Urine 5-10 /HPF (0-5/HPF); WBC Urine 1-5/HPF (0-5/HPF)
[2019-08-17 17:58] LABS: HIV 1 & 2 Ab/Ag 4th Gen Combo NEGATIVE (NEGATIVE); Hep C Virus Ab w/Reflex Quant NEGATIVE s/c (NEGATIVE); Hepatitis B Surface Antigen NEGATIVE s/c (NEGATIVE)
[2019-08-18 04:12] LABS: RPR Screen Non Reactive (Non Reactive)
[2019-08-18 08:12] LABS: Varicella IgG Antibody <135 index (Immune >165)
== END ==
PROVIDERS: PCP Specialist; Referring Provider Specialist; Visit Provider Specialist
DX: Z34.90 Encounter for supervision of normal pregnancy, unspecified, unspecified trimester (principal)
CPT/HCPCS: 36415; 80055; 81003; 81015; 86787; 86803; 86850; 86900; 86901; 87389

== ENCOUNTER 2019-08-17 13:58 | Emergency (ER) | payer OTHER, MEDICAID, SELFPAY ==
[2018-10-28 18:49] VITALS: BMI 31.1
[2019-08-17 14:18] VITALS: BP 111/64; PULSE 80; RESP 16; TEMP 36.8; O2SAT 99; BMI 29.0
[2019-08-17 15:05] VITALS: BP 106/59; PULSE 66; RESP 16; O2SAT 99
[2019-08-17] MEDS: ONDANSETRON 4 MG/2 ML INJ IV (15:24)
[2019-08-17] MEDS: SODIUM CHLORIDE 0.9% 1,000 ML 1000 ML IV ×2 (15:24→16:05)
[2019-08-17 15:32] LABS: BUN Creatinine Ratio 19.2 (6-22); Blood Urea Nitrogen 10 mg/dL (7-17); Calcium 9.4 mg/dL (8.4-10.2); Carbon Dioxide 23 mmol/L (22-32); Chloride 105 mmol/L (98-107); Estimated Glomerular Filt Rate > 60.0 mL/min (>60); Glucose 94 mg/dL (70-100); HEMOLYSIS 18 (0-50); Potassium 3.8 mmol/L (3.4-5.1); Sodium 135 mmol/L (137-145)
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
[2019-08-17 17:17] VITALS: BP 103/52; PULSE 72; RESP 14; TEMP 36.7; O2SAT 100
== END 2019-08-17 17:29 | disposition home or self-care (01) ==
PROVIDERS: Emergency Medicine; Emergency Provider Nurse Practitioner Family; PCP Specialist
DX: O21.9 Vomiting of pregnancy, unspecified (principal); Z3A.01 Less than 8 weeks gestation of pregnancy; Z34.90 Encounter for supervision of normal pregnancy, unspecified, unspecified trimester
CPT/HCPCS: 36415; 80048; 80055; 81003; 81015; 86787; 86803; 86850; 86900; 86901; 87389; 96361; 96374; 99284; J2405

== ENCOUNTER 2019-10-09 14:55 | Emergency (ER) | payer OTHER, MEDICAID, SELFPAY ==
[2018-10-28 18:49] VITALS: BMI 31.1
[2019-10-09] VITALS (10 sets, daily range): BP systolic 89–125; BP diastolic 50–68; PULSE 69–84; RESP 16–18; TEMP 37; O2SAT 97–100; BMI 21.4
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
[2019-10-09] MEDS: ACETAMINOPHEN 325 MG TABLET 975 MG PO (15:47)
[2019-10-09] MEDS: SODIUM CHLORIDE 0.9% 1,000 ML 2000 ML IV (15:51)
[2019-10-09] MEDS: ONDANSETRON 4 MG/2 ML INJ IV (15:51)
--- NOTE | 2019-10-09 15:55 | PC.NURSE ---
iv placed labs drawn
--- NOTE | 2019-10-09 16:23 | PC.NURSE ---
at bedside for re eval
--- NOTE | 2019-10-09 16:25 | PC.NURSE ---
pt provided with food and drink by the provider
--- NOTE | 2019-10-09 17:15 | PC.NURSE ---
pt tolorating po intake
--- NOTE | 2019-10-09 18:24 | PC.NURSE ---
pt ambulatory to bathroom steady gait
[2019-10-09] MEDS: SODIUM CHLORIDE 0.9% 1,000 ML 1000 ML IV (18:32)
--- NOTE | 2019-10-09 19:12 | PC.NURSE ---
pt resting in bed ivf infusing no distress noted none stated
== END 2019-10-09 19:53 | disposition home or self-care (01) ==
PROVIDERS: Emergency Provider Emergency Medicine; PCP Specialist
DX: O21.0 Mild hyperemesis gravidarum (principal); R51 Headache; Z3A.14 14 weeks gestation of pregnancy
CPT/HCPCS: 36415; 96361; 96374; 99284; J2405

== ENCOUNTER → 2019-10-26 13:42 | Outpatient (CLI) | payer OTHER, MEDICAID, SELFPAY ==
[2018-10-28 18:49] VITALS: BMI 31.1
[2019-10-30 07:19] LABS: AFP, Serum 23.1 ng/mL (.); Calc Gestational Age Ultrasound (.); Estriol, Free 1.36 ng/mL (.); Inhibin A, Dimeric 131.06 pg/mL (.); Inhibin A, MoM 0.84 (.); Maternal Ethnicity Caucasian (.); Maternal Weight 163 lbs (.); Number of Fetuses No (.); OSBR Risk 1 IN 10000 (.); Results Report (.); Test Results *Screen Negative* (.); hCG, MoM 1.04 (.); hCG, Serum 35732 mIU/mL (.)
== END ==
PROVIDERS: Referring Provider Specialist; Visit Provider Specialist
DX: Z34.82 Encounter for supervision of other normal pregnancy, second trimester (principal); Z3A.16 16 weeks gestation of pregnancy
CPT/HCPCS: 36415; 82105; 82677; 84702; 86336

== ENCOUNTER → 2019-12-08 14:16 | Outpatient (CLI) | payer OTHER, MEDICAID, SELFPAY ==
[2018-10-28 18:49] VITALS: BMI 31.1
--- NOTE | 2019-12-08 14:19 | DI.US.S_ITS ---
PROCEDURE: US OB >= 14 WEEKS FETUS INDICATIONS: 20 week anatomy scan OUTSIDE/PRIOR DATING DATA: Last menstrual period (LMP): Unknown. LMP-based estimated date of delivery (SALENA): Unknown. First dating scan (date and location): 08/13/2019. Estimated date of delivery (SALENA) from first dating scan: 04/07/2020. TECHNIQUE: Real-time scanning was performed of the fetus, with image documentation and biometric measurements. Endovaginal scanning: Not performed. COMPARISON: [facility], , OB >= 14 WEEKS FETUS, 11/09/2019, 14:01. [facility], , OB >= 14 WEEKS FETUS, 12/07/2019, 16:01. FINDINGS: General: A single living intrauterine gestation is present. Presentation: Transverse. Placenta: Placental position is fundal, without previa. Amniotic fluid index: 11.7 cm, normal range is 5-24 cm. heart rate: 141 beats per minute. Maternal cervical canal: 4.2 cm long. Normal lower limit is 2.5 cm. biometrics: Biparietal diameter: 5.6 cm, 23 weeks 2 days Head circumference: 21.5 cm, 23 weeks 4 days Abdominal circumference: 18.4 cm, 23 weeks 1 day Femur length: 4.4 cm, 24 weeks 3 days Estimated gestational age from initial scan: 22 weeks 5 days Composite gestational age from present scan: 23 weeks 4 days Estimated weight and percentile: 619 g, 87 percentile Measurement variability for biometric dating: +/- 7 days from 14 weeks to 15 weeks 6 days gestation, +/- 10 days from 16 weeks to 21 weeks 6 days gestation, +/- 2 weeks from 22 weeks to 27 weeks 6 days gestation, +/- 3 weeks for 28 weeks gestation or later. weight reference: 4500 g or EFW >90/95% is considered macrosomia or large for gestational age. EFW <10% is small for gestational age. EFW 5% or less is considered intra-uterine growth restriction. Anatomic survey: Neuro: Ventricles are non-dilated at less than 10 mm. Cisterna magna is normal at 3-11 mm. Cerebellum is normal in size and morphology. Nuchal skin fold: Normal at less than 6 mm between 14-21 weeks gestational age. Face: Nose and lips, facial profile are normal. Spine: No evidence for spina bifida. Heart: 4-chambered heart is present, with normal ventricular outflow tracts. Diaphragm: Diaphragm is intact. Stomach: Left-sided stomach is present. Kidneys: No hydronephrosis. Normal is less than 5 mm in 2nd trimester, less than 7 mm in 3rd trimester. Cord: 3-vessel cord has orthotopic insertion. Bladder: Normal in size. Extremities: All 4 extremities identified. IMPRESSION: 1. Leal living intrauterine at 23 weeks 4 days based on today's ultrasound. This is concordant with the prior ultrasound. There is expected interval growth. Fetus is at the 87th percentile for weight. 2. Normal placenta and amniotic fluid. 3. Normal and complete anatomic survey. Dictated by: Jordon Fulton M.D. on 12/08/2019 at 17:25 Approved by: Jordon Fulton M.D. on 12/08/2019 at 17:29
== END ==
PROVIDERS: PCP Specialist; Referring Provider Specialist; Visit Provider Specialist
DX: Z34.82 Encounter for supervision of other normal pregnancy, second trimester (principal); Z3A.23 23 weeks gestation of pregnancy
CPT/HCPCS: 76811

== ENCOUNTER 2020-01-12 11:58 | Observation (INO) | payer OTHER, MEDICAID, SELFPAY ==
[2018-10-28 18:49] VITALS: BMI 31.1
--- NOTE | 2020-01-12 12:38 | DI.US.S_ITS ---
PROCEDURE: US OB LIMITED INDICATIONS: CONTRACTIONS AT 27 WEEKS OUTSIDE/PRIOR DATING DATA: Last menstrual period (LMP): Unknown . LMP-based estimated date of delivery (SALENA): Unknown . First dating scan (date and location): 08/13/19 . Estimated date of delivery (SALENA) from first dating scan: 04/07/20 . TECHNIQUE: Real-time scanning was performed of the fetus, with image documentation and biometric measurements. Endovaginal scanning: Not performed COMPARISON: [facility] OB >= 14 WEEKS FETUS, 12/08/2019, 14:34. [facility] OB >= 14 WEEKS FETUS, 12/07/2019, 16:01. [facility] OB >= 14 WEEKS FETUS, 11/09/2019, 14:01. [facility] OB >= 14 WEEKS FETUS, 09/14/2019, 14:19. [facility] OB <= 14 WEEKS FETUS, 08/17/2019, 13:45. [facility] OB <= 14 WEEKS FETUS, 08/13/2019, 17:08. FINDINGS: General: A single living intrauterine gestation is present. Presentation: Vertex. Placenta: Placental position is posterior , without previa. Amniotic fluid index: 16.2 cm, normal range is 5-24 cm. Largest pocket 7.6 cm. heart rate: 127 beats per minute. Maternal cervical canal: 5.1 cm long. Normal lower limit is 2.5 cm. Beyond the closed segment, there is possible funneling appearance of the internal os measuring 2.7 cm biometrics: Biparietal diameter: 7.1 cm, 28 weeks 3 days Head circumference: 26.4 cm, 28 weeks 5 days Abdominal circumference: 23.9 cm, 28 weeks 1 day Femur length: 5.3 cm, 28 weeks 1 day Estimated gestational age from initial scan: 27 weeks 5 days Composite gestational age from present scan: 28 weeks 3 days Estimated weight and percentile: 1200 g, 59th percentile Measurement variability for biometric dating: +/- 7 days from 14 weeks to 15 weeks 6 days gestation, +/- 10 days from 16 weeks to 21 weeks 6 days gestation, +/- 2 weeks from 22 weeks to 27 weeks 6 days gestation, +/- 3 weeks for 28 weeks gestation or later. weight reference: 4500 g or EFW >90/95% is considered macrosomia or large for gestational age. EFW <10% is small for gestational age. EFW 5% or less is considered intra-uterine growth restriction. Other: Not applicable. IMPRESSION: Single living intrauterine fetus in vertex presentation. Cervical length measures 5.1 cm Expected interval growth Dictated by: Leonard Christensen M.D. on 01/12/2020 at 13:29 Approved by: Leonard Christensen M.D. on 01/12/2020 at 13:34
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
[2020-01-12 13:06] LABS: RBC Urine None Seen (0-5/HPF); WBC Urine None Seen (0-5/HPF)
[2020-01-12 13:11] LABS: Appearance Urine UA CLEAR; Bilirubin Urine UA NEGATIVE (NEGATIVE); Color Urine UA YELLOW; Glucose Urine UA NEGATIVE (Negative); Ketones Urine UA NEGATIVE (NEGATIVE); Leukocyte Esterase Urine UA NEGATIVE (NEGATIVE); Nitrite Urine UA NEGATIVE (Negative); Occult Blood Urine UA NEGATIVE (Negative); Protein Urine UA NEGATIVE (Negative); Urobilinogen Urine UA 0.2 E.U./dL (0.2)
[2020-01-12 13:20] LABS: pH Urine UA 6.5 (4.5-8.0)
[2020-01-12 13:22] LABS: Bacteria Urine Occasional (0-1); Mucus Urine 1+ (Negative)
[2020-01-12] MEDS: NIFEdipine 10 MG CAPSULE PO ×4 (13:46→14:47)
[2020-01-12] MEDS: LACTATED RINGERS 1,000 ML 1000 ML IV (14:07)
[2020-01-12 14:38] LABS: Add Manual Diff / Slide Review NO; Basophils Absolute Auto 0 /uL (0-100); Basophils Percent Auto 0.3 % (0-2); Eosinophils Absolute Auto 0 /uL (0-450); Eosinophils Percent Auto 0.3 % (2-4); Hematocrit 32.1 % (36-46); Hemoglobin 10.8 g/dL (12.0-16.0); Lymphocytes Absolute Auto 2200 /uL (1100-4500); Lymphocytes Percent Auto 17.8 % (25-40); Mean Corpuscular HGB Conc 33.5 % (30-36); Mean Corpuscular Hemoglobin 27.4 PG (26-34); Mean Corpuscular Volume 81.8 fL (80-100); Monocytes Absolute Auto 500 /uL (0-900); Monocytes Percent Auto 3.9 % (3-14); Neutrophils Absolute Auto 9500 /uL (1500-7000); Neutrophils Percent Auto 77.7 % (50-75); Platelet Count 298 X10^3/uL (150-400); Red Blood Cell Count 3.92 X10^6/uL (4.0-5.2); Red Cell Distribution Width 12.9 % (11.6-14.8); White Blood Cell Count 12.2 X10^3/uL (4.5-11.0)
[2020-01-12] MEDS: BETAMETHASONE 30 MG/5 ML MDV 12 MG IM (15:45)
[2020-01-12] MEDS: LACTATED RINGERS 1,000 ML 100 ML IV (15:56)
[2020-01-12] MEDS: MAGNESIUM SULFATE 4 GM/100 ML PIGGYBACK IV (16:15)
[2020-01-12 16:34] LABS: COVID19 -Nasal RAPID Negative (Negative)
[2020-01-12] MEDS: MAGNESIUM SULFATE 20 GM/500 ML IV.SOLN IV (16:45)
[2020-01-12] MEDS: ONDANSETRON 4 MG/2 ML INJ IV (17:10)
[2020-01-12 17:27] LABS: Strep Grp B PCR NEG for Grp B Strep
[2020-01-12 19:27] VITALS: BP 107/65
== END 2020-01-12 17:55 | disposition home or self-care (01) ==
PROVIDERS: Obstetrics & Gynecology; Admitting Provider Specialist; Referring Provider Specialist; Visit Provider Specialist
DX: O60.02 Preterm labor without delivery, second trimester (principal); Z3A.27 27 weeks gestation of pregnancy; Z11.59 Encounter for screening for other viral diseases
CPT/HCPCS: 36415; 59050; 76815; 81001; 85025; 86850; 86900; 86901; 87086; 87635; 87653; 96360; 96372; 99234; G0378; G0379; J0702; J2405; J3475

== ENCOUNTER → 2020-02-22 09:50 | Outpatient (CLI) | payer OTHER, MEDICAID, SELFPAY ==
[2018-10-28 18:49] VITALS: BMI 31.1
[2020-02-22 11:30] LABS: Add Manual Diff / Slide Review NO; Basophils Absolute Auto 0 /uL (0-100); Basophils Percent Auto 0.4 % (0-2); Eosinophils Absolute Auto 100 /uL (0-450); Eosinophils Percent Auto 0.8 % (2-4); Hematocrit 29.8 % (36-46); Lymphocytes Absolute Auto 2100 /uL (1100-4500); Lymphocytes Percent Auto 20.2 % (25-40); Mean Corpuscular HGB Conc 33.4 % (30-36); Mean Corpuscular Hemoglobin 26.6 PG (26-34); Mean Corpuscular Volume 79.5 fL (80-100); Monocytes Absolute Auto 600 /uL (0-900); Monocytes Percent Auto 5.9 % (3-14); Neutrophils Absolute Auto 7500 /uL (1500-7000); Neutrophils Percent Auto 72.7 % (50-75); Platelet Count 258 X10^3/uL (150-400); Red Blood Cell Count 3.75 X10^6/uL (4.0-5.2); Red Cell Distribution Width 13.8 % (11.6-14.8); White Blood Cell Count 10.3 X10^3/uL (4.5-11.0)
[2020-02-22 11:31] LABS: Hematocrit 29.8 % (36-46)
--- NOTE | 2020-02-22 11:47 | DI.RAD.S_ITS ---
PROCEDURE: XR ABDOMEN 1V INDICATIONS: scoliosis, anaesthesia recommended for epidural TECHNIQUE: One view of the abdomen acquired. COMPARISON: None. FINDINGS: Surgical changes and devices: None. Bowel: Bowel gas pattern is normal. Soft tissues: No suspicious abdominal calcifications. Visualized solid organ contours appear normal in size. Vertex presentation fetus Bones: No suspicious bony lesions. . No scoliosis seen. IMPRESSION: No appreciable scoliosis seen, vertex presentation fetus. Dictated by: Elroy Arcos M.D. on 02/22/2020 at 13:39 Approved by: Elroy Arcos M.D. on 02/22/2020 at 13:40
[2020-02-22 12:10] LABS: GTT (PREG) 1 Hour PP 50gm Dose 125 mg/dL (76-139)
== END ==
PROVIDERS: Obstetrics & Gynecology; Referring Provider Specialist; Visit Provider Specialist
DX: O47.9 False labor, unspecified (principal); M41.9 Scoliosis, unspecified
CPT/HCPCS: 36415; 74018; 82950; 85014; 85018; 85025; 86850; 86900; 86901

== ENCOUNTER → 2020-03-02 12:18 | Outpatient (CLI) | payer OTHER, MEDICAID, SELFPAY ==
[2018-10-28 18:49] VITALS: BMI 31.1
[2020-03-03 12:14] LABS: Strep Grp B PCR NEG for Grp B Strep
== END ==
PROVIDERS: Visit Provider Specialist
DX: Z34.83 Encounter for supervision of other normal pregnancy, third trimester (principal); Z3A.34 34 weeks gestation of pregnancy
CPT/HCPCS: 87653

== ENCOUNTER → 2020-03-02 12:30 | Oncology outpatient (ONC) | payer OTHER, MEDICAID, SELFPAY ==
[2018-10-28 18:49] VITALS: BMI 31.1
[2020-02-25] MEDS: LACTATED RINGERS 1,000 ML 1000 ML IV (14:02)
[2020-02-25] MEDS: ONDANSETRON 4 MG/2 ML INJ IV (14:18)
[2020-02-25] MEDS: IRON SUCROSE 100 MG in SODIUM CHLORIDE 0.9% 100 ML 210 ML IV (15:18)
[2020-02-25 16:01] VITALS: BP 116/58; PULSE 80; RESP 16; TEMP 36.6; O2SAT 98
[2020-02-29] MEDS: LACTATED RINGERS 1,000 ML 1000 ML IV (12:54)
[2020-02-29] MEDS: ONDANSETRON 4 MG/2 ML INJ IV (12:55)
[2020-02-29 13:10] VITALS: BP 100/59; PULSE 73; RESP 16; TEMP 36.6; O2SAT 97
[2020-02-29] MEDS: IRON SUCROSE 300 MG in SODIUM CHLORIDE 0.9% 250 ML 176.667 ML IV (13:21)
[2020-03-02] MEDS: LACTATED RINGERS 1,000 ML 1000 ML IV (13:06)
[2020-03-02] MEDS: ONDANSETRON 4 MG/2 ML INJ IV (13:07)
[2020-03-02 13:19] VITALS: BP 115/55; PULSE 81; RESP 16; TEMP 37; O2SAT 98
[2020-03-02] MEDS: IRON SUCROSE 300 MG in SODIUM CHLORIDE 0.9% 250 ML 176.667 ML IV (13:23)
== END ==
PROVIDERS: Referring Provider Specialist; Visit Provider Specialist
DX: O99.013 Anemia complicating pregnancy, third trimester (principal); D64.9 Anemia, unspecified; Z3A.34 34 weeks gestation of pregnancy
CPT/HCPCS: 87653; 96361; 96365; 96366; 96367; 96375; J1756; J2405

== ENCOUNTER 2020-03-08 10:21 | Inpatient (IN) | payer OTHER, MEDICAID, SELFPAY ==
[2018-10-28 18:49] VITALS: BMI 31.1
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
[2020-03-08 17:28] LABS: Add Manual Diff / Slide Review NO; Basophils Absolute Auto 0 /uL (0-100); Basophils Percent Auto 0.4 % (0-2); Eosinophils Absolute Auto 0 /uL (0-450); Eosinophils Percent Auto 0.4 % (2-4); Hematocrit 32.5 % (36-46); Hemoglobin 10.7 g/dL (12.0-16.0); Lymphocytes Absolute Auto 2000 /uL (1100-4500); Mean Corpuscular HGB Conc 32.9 % (30-36); Mean Corpuscular Hemoglobin 27.1 PG (26-34); Mean Corpuscular Volume 82.4 fL (80-100); Monocytes Absolute Auto 600 /uL (0-900); Monocytes Percent Auto 6.4 % (3-14); Neutrophils Absolute Auto 7200 /uL (1500-7000); Neutrophils Percent Auto 72.8 % (50-75); Platelet Count 251 X10^3/uL (150-400); Red Blood Cell Count 3.95 X10^6/uL (4.0-5.2); White Blood Cell Count 9.9 X10^3/uL (4.5-11.0)
[2020-03-08 18:30] VITALS: BP 115/64
[2020-03-08 19:34] LABS: COVID19 -Nasal RAPID Negative (Negative)
[2020-03-08] MEDS: SERTRALINE 50 MG TABLET PO (21:50)
[2020-03-08] MEDS: ONDANSETRON 4 MG/2 ML INJ IV (21:53)
[2020-03-08] MEDS: LACTATED RINGERS 1,000 ML 100 ML IV (22:22)
[2020-03-09] MEDS: FENT 2MCG/ML BUPIV 0.125% EPI 200 MCG/100 ML PLAST..BAG 12 MCG EPIDURAL ×2 (00:49→06:20)
[2020-03-09] MEDS: OXYTOCIN PREMIX 30 UNIT/500 ML PLAST..BAG IV (02:59)
[2020-03-09] MEDS: ONDANSETRON 4 MG/2 ML INJ IV ×2 (03:49→09:19)
[2020-03-09] MEDS: LACTATED RINGERS 1,000 ML 100 ML IV (04:23)
[2020-03-09] MEDS: ACETAMINOPHEN 325 MG TABLET 650 MG PO (10:44)
[2020-03-09] MEDS: IBUPROFEN 600 MG TABLET PO (11:44)
[2020-03-09] MEDS: OXYCODONE IR 5 MG TABLET PO (12:20)
--- NOTE | 2020-03-10 17:06 | PM.OBPRVD ---
Events: Labor < 37 wks and Labor Augmentation Labor & Delivery Delivery date: 03/09/20 Intrapartal events: Prolonged Labor > 20 hours Cervical ripening method: none Induction method: none Delivery augmentation: rupture of membranes and pitocin Delivery monitor: external FHT and external uterine Route of delivery: Episiotomy description: None L&D Laceration Description: None Estimated blood loss (mL): 500 Anesthesia Type: Epidural Complications: None Narrative: Patient complete and pushed x1. At 0949 on March 09, 2020, a live male infant delivered spontaneously in the AMY presentation. No nuchal cord. The remainder of the body delivered without difficulty and was placed on mom's abdomen. The cord was double clamped and cut after it stopped pulsing. Cord bloods were obtained. Pitocin was given in the IV fluids. The placenta delivered intact with a three-vessel cord at 9:57 a.m.. Fundus was massaged to firm. There were no lacerations. Apgars 8 at 1 minute and 9 at 5 minutes. . Epidural analgesia. Mom and stable to recovery. [place] Baby 1: gender: Male Presentation: vertex Position: Right Occiput Anterior Placenta delivery description: Spontaneous Cord Vessel Description: 3 Vessels score (1 min): 8 score (5 min): 9 Plan for aftercare: To Routine care
--- NOTE | 2020-03-10 17:09 | P.DS_ITS ---
Discharge Providers Provider Date of admission: 03/08/20 10:21 Discharge Date: 03/09/20 Primary care physician: Doctor Geovanny MD Consults: 03/08/20 16:01 Consult to Anesthesiology Urgent Comment: Consulting Provider: Anesthesiologist Reason for consultation: Epidural Has provider been notified: No Discharge provider: Ya Suggs MD Summary Hospital Course Date Patient Seen: 03/09/20 Time Patient Seen: 17:10 Procedures: Artificial rupture of membranes Pitocin augmentation of labor Spontaneous vaginal delivery Hospital Course: Patient is a 24-year-old 2 para 1 1 0 3 who presented at 35-,5/7 weeks gestation in labor. She progressed in labor and had an artificial rupture of membranes. She received an epidural for pain management. She progressed to complete dilation and had a spontaneous vaginal delivery without complication. The baby was transferred to [facility] due to breathing issues. Mom requested disc harge as well. Her bleeding was stable. She was able to ambulate independ ently. She was able to empty her bladder. Peripartum Data Infant Delivery Method: Natural Vaginal Laceration Description: None Episiotomy description: None Procedures: Artificial rupture membranes Epidural analgesia Pitocin augmentation Spontaneous vaginal delivery complications: none 1: Gender: Male Disposition of : NICU ([facility]) Status at Discharge Cognitive/behavioral status at discharge: oriented Functional status at discharge: independent ambulation Overall status at discharge: patient is progressing back to baseline Time Spent with Patient Time attestation: Total time spent providing and/or coordinating discharge services: Time spent: Less than 30 minutes Objective Labs Result Diagrams: 03/08/20 16:40 Exam Vital Signs (past 8 hours): Generally: Patient is sitting up in bed, no acute distress Lungs: Clear to auscultation bilaterally Cardiovascular: Regular rate and rhythm Fundus: Firm at U -2 Perineum: Intact Extremities: Trace edema, 1+ DTRs, negative [facility] Discharge Plan Discharge Plan Patient Disposition: Home Provider Discharge Comment: Call with fever, chills or vaginal bleeding more than a pad in an hour Discharge orders & Medications Prescriptions: New ibuprofen 600 mg tablet 600 mg PO Q6H PRN (Reason: cramping) Qty: 20 RF: 2 oxycodone 5 mg tablet 5 mg PO Q4H PRN (Reason: pain) Qty: 14 RF: 0 Continued sertraline 50 mg tablet 50 mg PO DAILY Qty: 30 RF: 4 prenat.vits,everett,vce-grsb-fiiza Tablet 1 tab PO DAILY RF: 0 Follow up/Referrals: Regine Vargas MD [Physician] - 1 Month (PP check 04/04/[address] Vargas) Diet/Activity/Treatments Diet: Regular Activity: Nothing in the vagina for 4 weeks Skin/Wound/Dressing Care Report to your healthcare provider any signs of infection, such as:: chills, fever, increased pain and unusual drainage Visit Report/Discharge Packet Instructions: DI for Labor and Delivery, Vaginal , DI for Prescription Opioid Use Stand Alone Forms: Discharge: Care Discharge Data Primary Care Provider: Miscellaneous,Doctor
== END 2020-03-09 15:30 | disposition home or self-care (01) | DRG 560 ==
PROVIDERS: Admitting Provider Specialist; Referring Provider Specialist; Visit Provider Specialist
DX: O60.13X0 Preterm labor second trimester with preterm delivery third trimester, not applicable or unspecified (principal); Z3A.35 35 weeks gestation of pregnancy; Z37.0 Single live birth
CPT/HCPCS: 01967; 36415; 59050; 59409; 84112; 85025; 86850; 86900; 86901; 87635; C9803; G0379; J2405; J2590

== ENCOUNTER 2020-12-06 11:12 | Emergency (ER) | payer OTHER, MEDICAID, SELFPAY ==
[2018-10-28 18:49] VITALS: BMI 31.1
[2020-12-06 11:46] VITALS: BP 117/56; PULSE 69; RESP 16; TEMP 36.2; O2SAT 96; BMI 31.3
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
--- NOTE | 2020-12-06 12:23 | DI.CT.S_ITS ---
PROCEDURE: CT ABDOMEN PELVIS WO CON INDICATIONS: ?kidney stones, Left flank pain TECHNIQUE: Axial sections were acquired from the lung bases to the pubic symphysis. Coronal and sagittal reformats were performed. For radiation dose reduction, the following was used: automated exposure control, adjustment of mA and/or kV according to patient size. COMPARISON: [facility], CT, CT ABD PELVIS W CON, 01/30/2016, 15:25. [facility], CT, ABDOMEN/PELVIS WITH CONTRAST, 04/11/2015, 11:43. [facility], CT, CT KUB, 03/24/2015, 13:51. [facility], CR, XR ABDOMEN 1V, 02/22/2020, 11:58. FINDINGS: Image quality: Excellent. Lung bases: Unremarkable. Heart: No significant findings. URINARY: Right Kidney: No stones or hydronephrosis. Right Ureter: No hydroureter. Left Kidney: No stones or hydronephrosis. Left Ureter: No hydroureter. Bladder: Normal wall thickness. No stones. ABDOMEN: Liver: Unremarkable. Gallbladder: Unremarkable. Biliary ducts: Unremarkable. Pancreas: Unremarkable. Spleen: Unremarkable. Adrenal Glands: Unremarkable. Stomach and Bowel: Stomach, small bowel loops, and colon are unremarkable. A normal appendix is incidentally noted. Colonic diverticulosis is seen, without findings of active diverticulitis. Peritoneum: No abnormal intraperitoneal fluid. No free air. Ventral Wall: Periumbilical hernia repair with presumed scar tissue can be seen. No recurrent periumbilical hernia can be seen. Abdominal Nodes: No enlarged retroperitoneal or mesenteric lymph nodes. Vessels: Aorta and inferior vena cava are normal in size. PELVIS: Pelvic Organs: The uterus appears normal for age. No adnexal masses are seen. Pelvic Nodes: Unremarkable. Miscellaneous: No inguinal hernias are seen. Bones: Unremarkable. IMPRESSION: Negative for stones or obstructive uropathy. Incidental note is made of: Periumbilical hernia repair, with apparent scar tissue Diverticulosis, without active diverticulitis Normal appendix Dictated by: Willie Forbes M.D. on 12/06/2020 at 11:41 Approved by: Willie Forbes M.D. on 12/06/2020 at 11:44
[2020-12-06 12:29] LABS: Bacteria Urine None Seen; Culture Indicated Urine Cult Not Indicated; Mucus Urine 2+ (Negative); RBC Urine 1-5/HPF (0-5/HPF); Squamous Epithelial Cell Urine 5-10 /HPF (0-5/HPF); WBC Urine None Seen (0-5/HPF)
[2020-12-06 12:34] LABS: Add Manual Diff / Slide Review NO; Basophils Absolute Auto 100 /uL (0-100); Basophils Percent Auto 0.9 % (0-2); Eosinophils Absolute Auto 300 /uL (0-450); Eosinophils Percent Auto 3.2 % (2-4); Hematocrit 37.1 % (36-46); Hemoglobin 12.7 g/dL (12.0-16.0); Lymphocytes Absolute Auto 2800 /uL (1100-4500); Lymphocytes Percent Auto 34.4 % (25-40); Mean Corpuscular HGB Conc 34.1 % (30-36); Mean Corpuscular Hemoglobin 28.8 PG (26-34); Mean Corpuscular Volume 84.4 fL (80-100); Monocytes Absolute Auto 700 /uL (0-900); Monocytes Percent Auto 8.4 % (3-14); Neutrophils Absolute Auto 4300 /uL (1500-7000); Neutrophils Percent Auto 53.1 % (50-75); Platelet Count 300 X10^3/uL (150-400); Red Cell Distribution Width 13.5 % (11.6-14.8)
[2020-12-06] MEDS: SODIUM CHLORIDE 0.9% 1,000 ML 1000 ML IV (12:38)
[2020-12-06] MEDS: KETOROLAC 30 MG/ML VIAL 15 MG IV (12:38)
[2020-12-06 12:56] LABS: Lactate (Lactic Acid) 0.9 mmol/L (0.7-2.1)
[2020-12-06 12:57] LABS: Alanine Aminotransferase 16 IU/L (<35); Albumin 4.4 g/dL (3.5-5.0); Albumin Globulin Ratio 1.6 (1.0-2.8); Alkaline Phosphatase 70 U/L (38-126); Aspartate Aminotransferase 24 IU/L (14-36); BUN Creatinine Ratio 16.4 (6-22); Bilirubin Total 0.5 mg/dL (0.2-1.3); Blood Urea Nitrogen 10 mg/dL (7-17); Calcium 9.4 mg/dL (8.4-10.2); Carbon Dioxide 27 mmol/L (22-32); Chloride 106 mmol/L (98-107); Estimated Glomerular Filt Rate > 60.0 mL/min (>60); Globulin 2.8 g/dL (1.7-4.1); Glucose 96 mg/dL (70-100); HEMOLYSIS < 15 (0-50); Lipase 78 U/L (23-300); Sodium 140 mmol/L (137-145); Total Protein 7.2 g/dL (6.3-8.2)
[2020-12-06] MEDS: CYCLOBENZAPRINE 10 MG TABLET PO (14:45)
[2020-12-06] MEDS: MORPHINE 4 MG/ML INJ IV (14:46)
[2020-12-06 14:54] VITALS: BP 110/64; PULSE 72; RESP 16; O2SAT 96
[2020-12-06 15:13] VITALS: BP 118/74; PULSE 70; RESP 16; O2SAT 99
== END 2020-12-06 15:13 | disposition home or self-care (01) ==
PROVIDERS: Emergency Medicine; Emergency Provider Student in an Organized Health Care Education/Training Program
DX: M54.9 Dorsalgia, unspecified (principal); Z87.442 Personal history of urinary calculi
CPT/HCPCS: 74176; 80053; 81003; 81015; 81025; 83605; 83690; 85025; 96361; 96374; 96375; 99284; J1885; J2270

== ENCOUNTER 2021-05-09 10:12 | Emergency (ER) | payer OTHER, MEDICAID, SELFPAY ==
[2018-10-28 18:49] VITALS: BMI 31.1
[2021-05-09 10:34] VITALS: BP 138/68; PULSE 59; RESP 18; TEMP 36.7; O2SAT 97; BMI 30.9
--- NOTE | 2021-05-09 10:49 | DI.RAD.S_ITS ---
PROCEDURE: XR CHEST 2V INDICATIONS: sob, cough TECHNIQUE: 2 views of the chest were acquired. COMPARISON: None. FINDINGS: Surgical changes and devices: None. Lungs and pleura: Lungs are clear. No pleural effusions or pneumothorax. Mediastinum: Mediastinal contours are normal. Heart size is normal. Bones and chest wall: No suspicious bony abnormalities. Soft tissues appear unremarkable. IMPRESSION: No acute cardiopulmonary pathology. Dictated by: Obdulio Jewell M.D. on 05/09/2021 at 11:07 Approved by: Obdulio Jewell M.D. on 05/09/2021 at 11:07
[2021-05-09 11:19] VITALS: PULSE 93
[2021-05-09 11:20] VITALS: BP 141/77; PULSE 86; RESP 22; O2SAT 98
[2021-05-09 11:21] LABS: COVID19 -Nasal RAPID Negative (Negative)
[2021-05-09 11:30] VITALS: BP 114/62; PULSE 75; RESP 15; O2SAT 97
[2021-05-09 12:00] VITALS: BP 105/63; PULSE 65; RESP 16; O2SAT 98
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
[2021-05-09 12:30] VITALS: BP 113/68; PULSE 71; O2SAT 99
== END 2021-05-09 12:37 | disposition home or self-care (01) ==
PROVIDERS: Emergency Provider Emergency Medicine
DX: J06.9 Acute upper respiratory infection, unspecified (principal); F17.200 Nicotine dependence, unspecified, uncomplicated; Z20.822 Contact with and (suspected) exposure to COVID-19
CPT/HCPCS: 71046; 87635; 99283; C9803

== ENCOUNTER 2021-06-16 11:12 | Emergency (ER) | payer OTHER, MEDICAID, SELFPAY ==
[2018-10-28 18:49] VITALS: BMI 31.1
[2021-06-16 12:15] VITALS: BP 128/77; PULSE 88; RESP 18; TEMP 36.7; O2SAT 97; BMI 30.4
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
[2021-06-16 14:38] LABS: Adenovirus Not Detected (Not Detect); B. parapertussis Not Detected (Not Detecte); Bordetella pertussis Not Detected (Not Detecte); Chlamydophila pneumoniae Not Detected (Not Detect); Coronavirus 229E Not Detected (Not Detect); Coronavirus HKU1 Not Detected (Not Detect); Coronavirus NL 63 Not Detected (Not Detect); Coronavirus OC43 Not Detected (Not Detect); Human Metapneumovirus Not Detected (Not Detect); Human Rhinovirus/Enterovirus Not Detected (Not Detect); Influenza A Not Detected (Not Detect); Influenza B Not Detected (Not Detect); Mycoplasma pneumoniae Not Detected (Not Detect); Parainfluenza Virus 1 Not Detected (Not Detect); Parainfluenza Virus 2 Not Detected (Not Detect); Parainfluenza Virus 3 Not Detected (Not Detect); Parainfluenza Virus 4 Not Detected (Not Detect); Respiratory Syncytial Virus Not Detected (Not Detect); SARS- CoV-2 Not Detected (Not Detecte)
== END 2021-06-16 14:07 | disposition home or self-care (01) ==
PROVIDERS: Emergency Provider Physician Assistant Medical
DX: R51.9 Headache, unspecified (principal); J11.1 Influenza due to unidentified influenza virus with other respiratory manifestations; Z20.822 Contact with and (suspected) exposure to COVID-19
CPT/HCPCS: 87633; 99281; 99282

== ENCOUNTER 2022-06-07 16:15 | Emergency (ER) | payer OTHER, MEDICAID, SELFPAY ==
[2018-10-28 18:49] VITALS: BMI 31.1
[2022-06-07] VITALS (8 sets, daily range): BP systolic 107–140; BP diastolic 63–94; PULSE 64–107; RESP 16–20; TEMP 37.4; O2SAT 96–99
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
[2022-06-07 17:17] LABS: Alanine Aminotransferase 21 IU/L (<35); Albumin 4.6 g/dL (3.5-5.0); Albumin Globulin Ratio 1.5 (1.0-2.8); Alkaline Phosphatase 44 U/L (38-126); Aspartate Aminotransferase 24 IU/L (14-36); BUN Creatinine Ratio 12.1 (6-22); Bilirubin Total 0.5 mg/dL (0.2-1.3); Blood Urea Nitrogen 8 mg/dL (7-17); Calcium 9.1 mg/dL (8.4-10.2); Carbon Dioxide 24 mmol/L (22-32); Chloride 106 mmol/L (98-107); Estimated Glomerular Filt Rate > 60 mL/min (>60); Globulin 3.1 g/dL (1.7-4.1); Glucose 125 mg/dL (70-100); HEMOLYSIS < 15 (0-50); Magnesium 2.1 mg/dL (1.6-2.3); Potassium 4.1 mmol/L (3.4-5.1); Sodium 138 mmol/L (137-145); Total Protein 7.7 g/dL (6.3-8.2)
--- NOTE | 2022-06-07 17:18 | ED_ITS ---
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 4 mg PO Q8H PRN (Reason: nausea and vomiting) 10 Days Qty: 30 1RF Stand Alone Forms: Patient Portal/API
[2022-06-07 17:19] LABS: Add Manual Diff / Slide Review NO; Basophils Absolute Auto 100 /uL (0-100); Eosinophils Absolute Auto 0 /uL (0-450); Eosinophils Percent Auto 0.4 % (2-4); Hematocrit 38.6 % (36-46); Hemoglobin 13.2 g/dL (12.0-16.0); Lymphocytes Absolute Auto 2000 /uL (1100-4500); Lymphocytes Percent Auto 26.5 % (25-40); Mean Corpuscular HGB Conc 34.1 % (30-36); Mean Corpuscular Hemoglobin 28.6 PG (26-34); Mean Corpuscular Volume 83.9 fL (80-100); Monocytes Absolute Auto 400 /uL (0-900); Monocytes Percent Auto 5.5 % (3-14); Neutrophils Absolute Auto 5000 /uL (1500-7000); Neutrophils Percent Auto 66.6 % (50-75); Platelet Count 308 X10^3/uL (150-400); Red Cell Distribution Width 13.2 % (11.6-14.8); White Blood Cell Count 7.5 X10^3/uL (4.5-11.0)
[2022-06-07] MEDS: ONDANSETRON 4 MG/2 ML INJ IV (17:23)
[2022-06-07] MEDS: KETOROLAC 30 MG/ML VIAL 15 MG IV (17:23)
[2022-06-07] MEDS: HYDROMORPHONE 0.5 MG INJ IV ×2 (17:24→20:50)
[2022-06-07] MEDS: SODIUM CHLORIDE 0.9% 1,000 ML 1000 ML IV (17:25)
[2022-06-07 17:59] LABS: Lactate (Lactic Acid) 1.1 mmol/L (0.7-2.1)
[2022-06-07 18:05] LABS: Bacteria Urine None Seen; Culture Indicated Urine Cult Not Indicated; RBC Urine None Seen (0-5/HPF); WBC Urine None Seen (0-5/HPF)
[2022-06-07 18:54] LABS: Influenza A - CEPHEID Flu A NEGATIVE (NEGATIVE); Influenza B - CEPHEID Flu B NEGATIVE (NEGATIVE); Respiratory Syncytial Virus Negative (Negative)
[2022-06-07 19:10] LABS: COVID-19 CEPHEID 4-PLEX PCR Negative (Negative)
[2022-06-07 19:25] LABS: C-Reactive Protein Quant < 0.5 mg/dL (<1.0)
[2022-06-07 19:40] LABS: Procalcitonin < 0.03 ng/mL (<0.5)
[2022-06-07 20:22] LABS: Urine N gonorrhoeae NOT DETECTED
[2022-06-07 20:29] LABS: Urine Chlamydia NOT DETECTED
--- NOTE | 2022-06-07 20:49 | PC.NURSE ---
CT negative. Cleared with Dr. Landrum to d/c pt
[2022-06-07] MEDS: metroNIDAZOLE 500 MG TABLET PO (20:50)
== END 2022-06-07 20:58 | disposition home or self-care (01) ==
PROVIDERS: Nurse Practitioner Critical Care Medicine; Emergency Provider Emergency Medicine
DX: N76.0 Acute vaginitis (principal); R10.11 Right upper quadrant pain; R11.2 Nausea with vomiting, unspecified; R51.9 Headache, unspecified; R50.9 Fever, unspecified; Z20.822 Contact with and (suspected) exposure to COVID-19
CPT/HCPCS: 0241U; 36415; 74177; 80053; 81003; 81015; 81025; 83605; 83735; 84145; 84443; 85025; 86140; 87210; 87491; 87591; 96361; 96374; 96375; 96376; 99284; J1170; J1885; J2405; Q9967

== ENCOUNTER 2023-02-13 15:56 | Emergency (ER) | payer OTHER, MEDICAID, SELFPAY ==
[2018-10-28 18:49] VITALS: BMI 31.1
[2023-02-13 16:03] VITALS: BP 141/72; PULSE 99; RESP 20; TEMP 37.4; O2SAT 99; BMI 26.6
--- NOTE | 2023-02-13 16:07 | DI.RAD.S_ITS ---
PROCEDURE: XR HIP W PEL IF DONE LT 2V INDICATIONS: fall 1 week ago, L hip pain TECHNIQUE: AP pelvis with lateral view(s) of the left hip(s). COMPARISON: None. FINDINGS: Bones: No fractures or dislocations. Pelvic ring appears intact. No evidence of avascular necrosis of femoral head. No suspicious bony lesions. Soft tissues: The visualized bowel gas pattern is normal. No suspicious soft tissue calcifications. IMPRESSION: No acute left hip fracture or dislocation. Dictated by: Obdulio Jewell M.D. on 02/13/2023 at 16:37 Approved by: Obdulio Jewell M.D. on 02/13/2023 at 16:38
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
--- NOTE | 2023-02-13 19:05 | DI.CT.S_ITS ---
PROCEDURE: CT PEL WO CON INDICATIONS: Left hip pain, please continue exam into upper femur shaft TECHNIQUE: Noncontrast 3 mm axial sections acquired through the bony pelvis, with coronal and sagittal reformatting. COMPARISON: [facility], CR, XR HIP W PEL IF DONE LT 2V, 02/13/2023, 16:10. FINDINGS: Image quality: Excellent. Bones: No acute osseous fracture or dislocation. No significant arthritic changes. No suspicious osseous lesion. No osteonecrosis of the femoral heads. Soft tissues: No focal soft tissue edema. The musculature surrounding the pelvis is normal in bulk. The articular cartilages, labrum, ligaments, and tendons are not well evaluated with CT. Included pelvic soft tissues demonstrate no acute abnormality. A few diverticula are seen in the colon without signs of acute diverticulitis. IMPRESSION: No acute osseous abnormality Approved by: Ra Brock M.D. on 02/13/2023 at 19:56 .
[2023-02-13] MEDS: ONDANSETRON 4 MG ODT SL (19:27)
[2023-02-13] MEDS: KETOROLAC 30 MG/ML VIAL IM (19:28)
[2023-02-13] MEDS: OXYCODONE/ACETAMINOPHEN 5/325 TABLET 1 TAB PO (19:30)
[2023-02-13 20:30] VITALS: TEMP 37.1
[2023-02-13 20:50] VITALS: BP 108/56; PULSE 68; RESP 16; TEMP 37.1; O2SAT 97
== END 2023-02-13 20:50 | disposition home or self-care (01) ==
PROVIDERS: Emergency Provider Emergency Medicine
DX: S70.02XA Contusion of left hip, initial encounter (principal); W01.0XXA Fall on same level from slipping, tripping and stumbling without subsequent striking against object, initial encounter
CPT/HCPCS: 72192; 73502; 96372; 99283; 99284; J1885

== ENCOUNTER 2023-05-30 15:02 | Emergency (ER) | payer OTHER, MEDICAID, SELFPAY ==
[2018-10-28 18:49] VITALS: BMI 31.1
[2023-05-30 15:13] VITALS: BP 122/77; PULSE 93; RESP 20; TEMP 36.8; O2SAT 100; BMI 30.4
[2023-05-30] MEDS: KETOROLAC 30 MG/ML VIAL 15 MG IM (16:31)
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
[2023-05-30 17:20] VITALS: BP 118/75; PULSE 89; RESP 18; O2SAT 100
== END 2023-05-30 17:22 | disposition home or self-care (01) ==
PROVIDERS: Emergency Provider Registered Nurse
DX: M54.50 Low back pain, unspecified (principal)
CPT/HCPCS: 96372; 99283; J1885

== ENCOUNTER 2023-08-28 18:06 | Emergency (ER) | payer OTHER, MEDICAID, SELFPAY ==
[2018-10-28 18:49] VITALS: BMI 31.1
[2023-08-28 18:08] VITALS: BP 128/70; PULSE 100; RESP 18; TEMP 37.1; O2SAT 98; BMI 30.9
--- NOTE | 2023-08-28 18:13 | DI.RAD.S_ITS ---
PROCEDURE: XR WRIST RT MIN 3V INDICATIONS: Injury/pain TECHNIQUE: 4 views of the wrist were acquired. COMPARISON: None. FINDINGS: Bones: There is widening of the scapholunate interval. No acute displaced fracture. Possible prominent distal radioulnar joint also present. Soft tissues: No suspicious calcifications. IMPRESSION: No acute displaced fracture. Mild widening of the distal radial ulnar joint and scapholunate interval. If there is high concern for further derangement, consider MRI evaluation. Dictated by: Jose Regan M.D. on 08/28/2023 at 19:10 Approved by: Jose Regan M.D. on 08/28/2023 at 19:12
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
[2023-08-28] MEDS: ACETAMINOPHEN 325 MG TABLET 650 MG PO (19:00)
--- NOTE | 2023-08-28 19:15 | PC.NURSE ---
Pt states she was cutting bushes when the handle broke off of glove cutter and hit her wrist. No open skin noted; no redness or swelling noted. Pt states she has been using ice and heat at home to help manage. Pt tearful.
[2023-08-28 19:49] VITALS: BP 112/74; PULSE 84; RESP 18; O2SAT 98
[2023-08-28] MEDS: TRAMADOL 50 MG TABLET PO (20:08)
== END 2023-08-28 20:12 | disposition home or self-care (01) ==
PROVIDERS: Emergency Provider Emergency Medicine
DX: S63.501A Unspecified sprain of right wrist, initial encounter (principal); W22.8XXA Striking against or struck by other objects, initial encounter
CPT/HCPCS: 73110; 81003; 81025; 99283

== ENCOUNTER 2023-11-29 12:01 | Emergency (ER) | payer OTHER, MEDICAID, SELFPAY ==
[2018-10-28 18:49] VITALS: BMI 31.1
[2023-11-29 12:28] VITALS: BP 117/67; PULSE 79; RESP 15; TEMP 36.1; O2SAT 100; BMI 32.2
[2023-11-29 12:57] LABS: Add Manual Diff / Slide Review NO; Basophils Absolute Auto 100 /uL (0-100); Basophils Percent Auto 0.6 % (0-2); Eosinophils Absolute Auto 0 /uL (0-450); Eosinophils Percent Auto 0.2 % (2-4); Hematocrit 40.7 % (36-46); Hemoglobin 13.9 g/dL (12.0-16.0); Lymphocytes Absolute Auto 1400 /uL (1100-4500); Lymphocytes Percent Auto 14.6 % (25-40); Mean Corpuscular Hemoglobin 29.2 PG (26-34); Mean Corpuscular Volume 85.7 fL (80-100); Monocytes Absolute Auto 400 /uL (0-900); Monocytes Percent Auto 3.9 % (3-14); Neutrophils Absolute Auto 7800 /uL (1500-7000); Neutrophils Percent Auto 80.7 % (50-75); Platelet Count 322 X10^3/uL (150-400); Red Blood Cell Count 4.75 X10^6/uL (4.0-5.2); White Blood Cell Count 9.7 X10^3/uL (4.5-11.0)
[2023-11-29 13:02] LABS: INR 1.1 (0.9-1.3); Prothrombin Time 12.7 SECONDS (9.4-12.5)
[2023-11-29 13:04] LABS: PTT Partial Thromboplastin Tim 32 SECONDS (25.1-36.5)
[2023-11-29 13:09] LABS: Alanine Aminotransferase 29 IU/L (<35); Albumin 4.7 g/dL (3.5-5.0); Albumin Globulin Ratio 1.4 (1.0-2.8); Alkaline Phosphatase 56 U/L (38-126); Aspartate Aminotransferase 34 IU/L (14-36); BUN Creatinine Ratio 23.4 (6-22); Bilirubin Total 0.7 mg/dL (0.2-1.3); Blood Urea Nitrogen 15 mg/dL (7-17); Calcium 9.3 mg/dL (8.4-10.2); Carbon Dioxide 23 mmol/L (22-32); Chloride 105 mmol/L (98-107); Estimated Glomerular Filt Rate > 60 mL/min (>60); Globulin 3.3 g/dL (1.7-4.1); Glucose 114 mg/dL (70-100); HEMOLYSIS 46 (0-50); Potassium 4.2 mmol/L (3.4-5.1); Sodium 137 mmol/L (137-145)
[2023-11-29 13:21] LABS: Bacteria Urine Occasional (0-1); Culture Indicated Urine Cult Not Indicated; Mucus Urine 3+ (Negative); RBC Urine 0-1/HPF (0-5/HPF); Squamous Epithelial Cell Urine 10-30 /HPF (0-5/HPF); Urine Volume 10mL (spun); WBC Urine 5-10/HPF (0-5/HPF)
[2023-11-29 13:23] LABS: Ictotest Urine Negative (Negative)
[2023-11-29 14:13] LABS: Adenovirus F 40/41 Not Detected (Not Detect); Astrovirus Not Detected (Not Detect); Campylobacter Not Detected (Not Detect); Clostridium difficile toxin AB Not Detected (Not Detect); Cryptosporidium Not Detected (Not Detect); Cyclospora cayetanensis Not Detected (Not Detect); Entamoeba histolytica Not Detected (Not Detect); Enteroaggregative E.coli Not Detected (Not Detect); Enteropathogenic E.coli Detected (Not Detect); Enterotoxigenic E.coli It/st Not Detected (Not Detect); Giardia lamblia Not Detected (Not Detect); Norovirus GI/GII Not Detected (Not Detect); Plesiomonsa shigelloides Not Detected (Not Detect); Rotavirus A Not Detected (Not Detect); Salmonella Not Detected (Not Detect); Sapovirus Not Detected (Not Detect); Shiga-like toxin-prod E.coli Not Detected (Not Detect); Shigella/Enteroinvasive E.coli Not Detected (Not Detect); Vibrio Not Detected (Not Detect); Vibrio cholerae Not Detected (Not Detect); Yersinia enterocolitica Not Detected (Not Detect)
[2023-11-29] MEDS: PANTOPRAZOLE 40 MG VIAL 80 MG IV (14:59)
[2023-11-29] MEDS: ONDANSETRON 4 MG/2 ML INJ IV (15:03)
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
[2023-11-29] MEDS: KETOROLAC 30 MG/ML VIAL 15 MG IV (16:05)
[2023-11-29 17:00] VITALS: BP 132/95; PULSE 82; RESP 20; TEMP 37.1; O2SAT 96
== END 2023-11-29 17:00 | disposition home or self-care (01) ==
PROVIDERS: Emergency Provider Emergency Medicine
DX: A04.4 Other intestinal Escherichia coli infections (principal)
CPT/HCPCS: 36415; 80053; 81003; 81015; 81025; 85025; 85610; 85730; 87507; 96374; 96375; 99284; J1885; J2405; J2470

== ENCOUNTER → 2024-01-08 08:41 | Outpatient (CLI) | payer OTHER, MEDICAID, SELFPAY ==
[2018-10-28 18:49] VITALS: BMI 31.1
[2024-01-08 10:23] LABS: C-Reactive Protein Quant < 0.5 mg/dL (<1.0); Creatine Kinase 62 U/L (30-135)
[2024-01-08 10:24] LABS: Rheumatoid Factor < 8.6 IU/mL (<12.0)
[2024-01-08 11:09] LABS: Vitamin B12 563 pg/mL (239-931)
[2024-01-08 12:14] LABS: Erythrocyte Sedimentation Rate 12 MM/HR (0-20)
[2024-01-10 12:39] LABS: Albumin 3.7 g/dL (2.9-4.4); Alpha 1 Globulin 0.3 g/dL (0.0-0.4); Alpha 2 Globulin 0.7 g/dL (0.4-1.0); Gamma Globulin 1.2 g/dL (0.4-1.8); Protein, Total 6.9 g/dL (6.0-8.5)
== END ==
PROVIDERS: PCP Family Medicine; Referring Provider Student in an Organized Health Care Education/Training Program; Visit Provider Student in an Organized Health Care Education/Training Program
DX: M79.641 Pain in right hand (principal); M79.642 Pain in left hand
CPT/HCPCS: 36415; 82550; 82607; 84155; 84165; 85651; 86038; 86140; 86256; 86430

== ENCOUNTER → 2024-02-17 09:47 | Outpatient (CLI) | payer OTHER, SELFPAY ==
[2018-10-28 18:49] VITALS: BMI 31.1
--- NOTE | 2024-02-17 09:48 | DI.RAD.S_ITS ---
PROCEDURE: XR HAND LT MIN 3V INDICATIONS: purple discoloration, pain, no known injury TECHNIQUE: 3 views of the hand(s) acquired. COMPARISON: None. FINDINGS: Bones: No fractures or dislocations. Carpal bones are normally aligned. No suspicious bony lesions. Soft tissues: No suspicious soft tissue calcifications. IMPRESSION: No acute osseous abnormality. If pain persists with conservative management, consider repeat x-ray in 10-14 days or cross-sectional imaging. Dictated by: Dayday Johnson M.D. on 02/17/2024 at 10:42 Approved by: Dayday Johnson M.D. on 02/17/2024 at 10:43
== END ==
PROVIDERS: PCP Family Medicine; Referring Provider Physician Assistant Medical; Visit Provider Physician Assistant Medical
DX: S60.222A Contusion of left hand, initial encounter (principal); X58.XXXA Exposure to other specified factors, initial encounter
CPT/HCPCS: 73130

== ENCOUNTER 2024-05-27 09:19 | Emergency (ER) | payer OTHER, SELFPAY ==
[2018-10-28 18:49] VITALS: BMI 31.1
[2024-05-27 09:25] VITALS: BP 133/84; PULSE 94; RESP 14; TEMP 36.3; O2SAT 97; BMI 32.2
[2024-05-27] MEDS: IBUPROFEN 400 MG TABLET PO (09:30)
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
--- NOTE | 2024-05-27 11:48 | DI.CT.S_ITS ---
PROCEDURE: CT HEAD/BRAIN WO CON INDICATIONS: severe sanchez TECHNIQUE: Noncontrast 4.5 mm thick angled axial sections acquired from the foramen magnum to the vertex, with coronal and sagittal reformats. For radiation dose reduction, the following was used: automated exposure control, adjustment of mA and/or kV according to patient size. COMPARISON: [facility], CT, CT HEAD WITHOUT CONTRAST, 06/06/2021, 0:09. [facility], CT, CT BRAIN WO CON, 01/30/2016, 15:25. FINDINGS: Image quality: Streak artifact can be seen through the skull base. CSF spaces: Basal cisterns are patent. No extra-axial fluid collections. Ventricles are normal in size and shape. Brain: No midline shift. No intracranial masses or hemorrhage. Newton-white matter interface is normal. Skull and face: Calvarium and visualized facial bones are intact, without suspicious lesions. Sinuses: Mild mucosal thickening can be seen within the ethmoid air cells. Mastoid IMPRESSION: No acute intracranial hemorrhage is seen. No acute intracranial pathology. To the limits of this noncontrast study, no findings of intracranial masses or mass effect can be seen. Dictated by: Willie Forbes M.D. on 05/27/2024 at 11:10 Approved by: Willie Forbes M.D. on 05/27/2024 at 11:12
[2024-05-27] MEDS: METOCLOPRAMIDE 10 MG/2 ML INJ IV (12:35)
[2024-05-27] MEDS: SODIUM CHLORIDE 0.9% 1,000 ML 1000 ML IV (12:35)
[2024-05-27] MEDS: diphenhydrAMINE 50 MG/ML VIAL 25 MG IV (12:35)
[2024-05-27] MEDS: SUMAtriptan 25 MG TABLET 50 MG PO (12:35)
--- NOTE | 2024-05-27 14:51 | PC.NURSE ---
Patient just awoke after an hour and a half of sleep stating her pain has dramatically reduced. Pain assessment performed and charted. patient states I feel ready to go come now. This RN informed provider.
[2024-05-27 14:54] VITALS: BP 124/80; PULSE 76; RESP 16; TEMP 36.9; O2SAT 97
== END 2024-05-27 15:04 | disposition home or self-care (01) ==
PROVIDERS: Emergency Provider Physician Assistant; PCP Family Medicine
DX: G43.009 Migraine without aura, not intractable, without status migrainosus (principal); M54.2 Cervicalgia
CPT/HCPCS: 36415; 70450; 96361; 96374; 96375; 99284; J1200; J2765

== ENCOUNTER 2024-07-10 08:47 | Emergency (ER) | payer OTHER, SELFPAY ==
[2018-10-28 18:49] VITALS: BMI 31.1
[2024-07-10] VITALS (8 sets, daily range): BP systolic 100–121; BP diastolic 53–78; PULSE 52–67; RESP 16–17; TEMP 36.5; O2SAT 97–99; BMI 32.8
--- NOTE | 2024-07-10 10:07 | DI.RAD.S_ITS ---
PROCEDURE: XR SHOULDER RT MIN 2V INDICATIONS: pain scapula TECHNIQUE: 3 views of the shoulder were acquired. COMPARISON: None. FINDINGS: Bones: No fractures or dislocations. No suspicious bony lesions. Visualized ribs appear intact. Soft tissues: No suspicious soft tissue calcifications. IMPRESSION: No acute bony abnormality. Dictated by: Mingo Curiel M.D. on 07/10/2024 at 11:55 Approved by: Mingo Curiel M.D. on 07/10/2024 at 11:55
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
[2024-07-10] MEDS: methocarbamoL 500 MG TABLET 750 MG PO (10:13)
[2024-07-10] MEDS: KETOROLAC 30 MG/ML VIAL IM (10:13)
== END 2024-07-10 12:37 | disposition home or self-care (01) ==
PROVIDERS: Emergency Provider Student in an Organized Health Care Education/Training Program; PCP Family Medicine
DX: M54.6 Pain in thoracic spine (principal); M62.830 Muscle spasm of back
CPT/HCPCS: 73030; 96372; 99283; J1885

== ENCOUNTER 2024-09-16 09:07 | Emergency (ER) | payer OTHER, SELFPAY ==
[2018-10-28 18:49] VITALS: BMI 31.1
--- NOTE | 2024-09-16 09:14 | DI.RAD.S_ITS ---
PROCEDURE: XR LUMBAR SPINE 2-3V INDICATIONS: fall TECHNIQUE: 3 views of the lumbar spine were acquired. COMPARISON: None. FINDINGS: Bones: 5 [id number] vertebrae are present. There is normal bony alignment. No vertebral body compression fractures. No suspicious bony lesions. Soft tissues: Overlying bowel gas pattern is normal. No suspicious soft tissue calcifications. IMPRESSION: No acute bony abnormality. Dictated by: Riki Andrew M.D. on 09/16/2024 at 9:49 Approved by: Riki Andrew M.D. on 09/16/2024 at 9:49
--- NOTE | 2024-09-16 09:14 | DI.RAD.S_ITS ---
PROCEDURE: XR PELVIS 1-2V INDICATIONS: trauma TECHNIQUE: 1 view(s) of the pelvis acquired. COMPARISON: None. FINDINGS: Bones: No fractures or dislocations. No suspicious bony lesions. Soft tissues: Visualized bowel gas pattern is normal. No suspicious soft tissue calcifications. IMPRESSION: No acute bony abnormality. Dictated by: Riki Andrew M.D. on 09/16/2024 at 9:49 Approved by: Riki Andrew M.D. on 09/16/2024 at 9:50
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
[2024-09-16 09:17] VITALS: BP 138/86; PULSE 103; RESP 20; TEMP 36.6; O2SAT 100; BMI 32.2
[2024-09-16] MEDS: IBUPROFEN 400 MG TABLET PO (09:32)
[2024-09-16] MEDS: OXYCODONE/ACETAMINOPHEN 5/325 TABLET 1 TAB PO (09:32)
[2024-09-16 11:32] VITALS: BP 106/56; PULSE 56; O2SAT 99
== END 2024-09-16 11:32 | disposition home or self-care (01) ==
PROVIDERS: Emergency Provider Emergency Medicine; PCP Family Medicine
DX: S39.92XA Unspecified injury of lower back, initial encounter (principal); W10.9XXA Fall (on) (from) unspecified stairs and steps, initial encounter
CPT/HCPCS: 72100; 72170; 99283

== ENCOUNTER 2025-01-28 08:41 | Emergency (ER) | payer OTHER, SELFPAY ==
[2018-10-28 18:49] VITALS: BMI 31.1
[2025-01-28 08:42] VITALS: BP 159/72; PULSE 87; RESP 14; TEMP 36.9; O2SAT 98; BMI 32.2
--- OUTSIDE RECORDS SUMMARY | 2025-01-28 08:43 | XMS_ITS | Encounter Summary ---
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 Role Phone Juana Pathak MD Primary Care Provider [phone] Fer Patton DMD Unavailable [phone] Fer Patton DMD Unavailable [phone] Shayla Green DDS Unavailable [phone] Encounter Details Date Type Department Care Team (Late Contact Info) Description 04/13/2019 [facility] CONVERSION Provider, [facility] Social History Tobacco Use Types Packs/Day Years Used Date Smoking Tobacco: Never Assessed Comments Unknown Sex and Gender Information Value Date Recorded Sex Assigned at Female 03/04/2019 2:38 PM PST Legal Sex Female 2:38 PM PST Gender Identity Female 03/04/2019 2:38 PM PST Sexual Orientation Straight 03/04/2019 2: 38 PM PST documented as of this encounter Miscellaneous Notes * [facility] Historical Reminder - [facility] Conversion Provider - 04/13/2019 12:00 AM PST [employer] Reminder Patient: Katiana Chery Subject: Huddle: FMH,Imms,HIv &Chlam screen,Tobac,WWe w/pap Priority: Medium Remind: Always Date Entered: 11/10/2018 9:46 AM Entered By: Yaquelin Fletcher MA Note: Subject: HMO Priority: Medium Remind: Always Date Entered: 05/07/2018 4:54 PM Entered By: Zeny Vidal Note: HMO Other Provider: Jesusita Steveargelia Location: [address] [facility] [address] change of primary care provider: Juana Vidal [employer] [facility] EXT [id number] 05/07/18 -- Subject: HMO Priority: Medium Remind: 01/14/2016 11:31 AM (Always) Entered By: Zeny Vidal on 01/14/2016 11:31 AM Note: HMO Other Provider Change Of Primary Care Provider: PENDING Zeny Vidal [employer] [place] 01/13/2016 documented in this encounter Plan of Treatment Upcoming Encounters Date Type Department Care Team (Late st Contact Info) Description 04/30/2025 9:00 AM PDT Office Visit [facility] [address] [place] [phone] Shayla Green, DDS [address], [place] [phone] tx 05/14/2025 1:00 PM PDT Office Visit [facility] [address] [place] [phone] Shayla Green DDS [address] [place] [address] tx documented as of this encounter Visit Diagnoses Not on filedocumented in this encounter Care Teams 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
--- NOTE | 2025-01-28 08:59 | DI.CT.S_ITS ---
PROCEDURE: CT ABDOMEN PELVIS W CON INDICATIONS: RLQ pain TECHNIQUE: After the administration of intravenous contrast, axial sections acquired from the lung bases to the pubic symphysis. Coronal and sagittal reformats were performed. For radiation dose reduction, the following was used: automated exposure control, adjustment of mA and/or kV according to patient size. COMPARISON: [facility], CT, CT ABDOMEN PELVIS W CON, 06/07/2022, 17:49. FINDINGS: Quality: Diagnostic. Lower Chest: Unremarkable. Abdomen: Liver: Unremarkable. Gallbladder and bile ducts: Cholecystectomy. No biliary duct dilation.. Pancreas: Unremarkable. Spleen: Unremarkable. Adrenal Glands: Unremarkable. Kidneys and Ureters: Unremarkable. Stomach: Unremarkable. Bowel: No abnormal dilation. No wall thickening. Normal appendix. Diverticulosis. Peritoneum: No free fluid. No free air. Pelvis: Reproductive: Unremarkable. Bladder: Unremarkable. Other: Lymphatic: No adenopathy. Vasculature: No aortic aneurysm. Abdominal wall: Umbilical hernia repair with mesh.. Bones: No aggressive osseous lesion. IMPRESSION: No acute abnormality. Dictated by: Lemuel Conde M.D. on 01/28/2025 at 10:24 Approved by: Lemuel Conde M.D. on 01/28/2025 at 10:30
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
[2025-01-28 09:49] LABS: Add Manual Diff / Slide Review NO; Hematocrit 39.6 % (36-46); Hemoglobin 13.5 g/dL (12.0-16.0); Lymphocytes Absolute Auto 1600 /uL (1100-4500); Mean Corpuscular HGB Conc 34.2 % (30-36); Mean Corpuscular Hemoglobin 29.3 PG (26-34); Mean Corpuscular Volume 85.7 fL (80-100); Platelet Count 286 X10^3/uL (150-400)
[2025-01-28] MEDS: KETOROLAC 30 MG/ML VIAL 15 MG IV (09:55)
[2025-01-28 10:00] LABS: Alanine Aminotransferase 28 IU/L (<35); Albumin 4.7 g/dL (3.5-5.0); Albumin Globulin Ratio 1.4 (1.0-2.8); Alkaline Phosphatase 58 U/L (38-126); Blood Urea Nitrogen 11 mg/dL (7-17); Calcium 9.1 mg/dL (8.4-10.2); Carbon Dioxide 24 mmol/L (22-32); Chloride 105 mmol/L (98-107); Estimated Glomerular Filt Rate > 60 mL/min (>60); Globulin 3.3 g/dL (1.7-4.1); Glucose 111 mg/dL (70-99); HEMOLYSIS 67 (0-50); Lipase 87 U/L (23-300); Potassium 4.2 mmol/L (3.4-5.1); Sodium 138 mmol/L (137-145); Total Protein 8.0 g/dL (6.3-8.2)
[2025-01-28 10:07] LABS: Culture Indicated Urine Cult Not Indicated
[2025-01-28 11:17] VITALS: BP 127/94; PULSE 65; RESP 18; O2SAT 99
== END 2025-01-28 11:20 | disposition home or self-care (01) ==
PROVIDERS: Emergency Provider Emergency Medicine; PCP Family Medicine
DX: K62.5 Hemorrhage of anus and rectum (principal); R10.11 Right upper quadrant pain; R10.A1 Flank pain, right side
CPT/HCPCS: 36415; 74177; 80053; 81003; 81015; 81025; 83690; 85025; 87086; 96374; 99284; J1885; Q9967